=== PATIENT | male | born 1990 | race Caucasian/White ===

== ENCOUNTER 2016-06-13 13:44 | Emergency (ER) | payer OTHER ==
--- NOTE | 2016-06-13 13:57 | ER Document Report ---
ED Medical Screen (RME) - General Stated Complaint: VOMITING Notes: onset: friday emesis occasionally throughout the day but worse today denies hematemesis or hematochezia epigastric abdominal pain social etoh use last BM- today, loose I have greeted and performed a rapid initial assessment of this patient. A comprehensive ED assessment and evaluation of the patient, analysis of test results and completion of the medical decision making process will be conducted by additional ED providers. - Related Data Allergies/Adverse Reactions: No Known Allergies Allergy (Unverified 04/09/12 17:54) Past Medical History - Immunizations Hx Diphtheria, Pertussis, Tetanus Vaccination: Yes - unk Physical Exam - Vital signs Vitals: Temp Pulse Resp BP Pulse Ox 98.1 F 64 20 145/76 H 100 06/13/16 13:55 06/13/16 13:55 06/13/16 13:55 06/13/16 13:55 06/13/16 13:55 Course - Vital Signs Vital signs: Temp Pulse Resp BP Pulse Ox 98.1 F 64 20 145/76 H 100 06/13/16 13:55 06/13/16 13:55 06/13/16 13:55 06/13/16 13:55 06/13/16 13:55
[2016-06-13] MEDS ORDERED: ONDANSETRON 4 MG TAB.RAPDIS PO ONE (14:01)
[2016-06-13 14:21] LABS: ABSOLUTE LYMPHOCYTES (AUTO) 1.9 10^3/uL (0.5-4.7); ABSOLUTE MONOCYTES (AUTO) 1.1 10^3/uL (0.1-1.4); ABSOLUTE NEUT (AUTO) 7.1 10^3/uL (1.7-8.2); BASOPHILS % (AUTO) 0.4 % (0-2); EOSINOPHILS % (AUTO) 0.1 % (0-6); HEMOGLOBIN 14.8 g/dL (13.5-17.0); HGB HCT DIFFERENCE 2.4; MEAN CORPUSCULAR HEMOGLOBIN 28.9 pg (27.0-33.4); MEAN CORPUSCULAR HGB CONC 35.1 g/dL (32.0-36.0); MEAN CORPUSCULAR VOLUME 82 fl (80-97); MONOCYTES % (AUTO) 11.1 % (3-13); RED BLOOD COUNT 5.11 10^6/uL (4.35-5.55); RED CELL DISTRIBUTION WIDTH 12.9 % (11.5-14.0); SEGMENTED NEUTROPHILS % (AUTO) 69.4 % (42-78); WHITE BLOOD COUNT 10.2 10^3/uL (4.0-10.5)
[2016-06-13 14:35] LABS: ALANINE AMINOTRANSFERASE 32 U/L (21-72); ALKALINE PHOSPHATASE 65 U/L (38-126); ANION GAP 17 (5-19); ASPARTATE AMINO TRANSFERASE 19 U/L (17-59); BILIRUBIN,TOTAL 3.5 mg/dL (0.2-1.3); BLOOD UREA NITROGEN 11 mg/dL (7-20); CALCIUM 10.4 mg/dL (8.4-10.2); CARBON DIOXIDE 25 mmol/L (22-30); CHLORIDE 100 mmol/L (98-107); CREATININE RESULT 0.85 mg/dL (0.52-1.25); GLUCOSE 103 mg/dL (75-110); SODIUM 141.9 mmol/L (137-145); TOTAL PROTEIN 8.6 g/dL (6.3-8.2)
[2016-06-13] MEDS ORDERED: NORMAL SALINE 1000 ML 1,000 ML IV PRN (15:18)
[2016-06-13] MEDS ORDERED: ONDANSETRON HCL INJ/PF 4 MG/2 ML SDV IV ONE ×2 (15:19→17:19)
--- NOTE | 2016-06-13 17:05 | ER Document Report ---
ED GI/ - General Chief Complaint: Vomiting Stated Complaint: VOMITING Notes: Patient says he began vomiting on Friday. He's been maintained nauseated with vomiting for a couple of days, until yesterday, he seemed to be improving. After dinner last night, he says that he became nauseated and began vomiting again and is vomited all night and all day today. He says he has vomited about 20 times in the past 24 hours. Also having some watery diarrhea. No blood present in either the vomitus or the stools. He has abdominal pains primarily in the epigastric region of the abdomen. No urinary tract symptoms. Has felt like he had a fever, but hasn't taken his temperature. TRAVEL OUTSIDE OF THE [place] IN LAST 30 DAYS: No - Related Data Allergies/Adverse Reactions: acetaminophen [From Vicodin] Allergy (Verified 06/13/16 13:59) hydrocodone [From Vicodin] Allergy (Verified 06/13/16 13:59) Past Medical History - Social History Smoking Status: Current Every Day Smoker Chew tobacco use (# tins/day): No Frequency of alcohol use: Occasional Drug Abuse: None Family History: Reviewed & Not Pertinent Patient has suicidal ideation: No Patient has homicidal ideation: No GI Medical History: Denies: Hx Cirrhosis, Hx Hepatitis, Hx Liver Failure - Immunizations Hx Diphtheria, Pertussis, Tetanus Vaccination: Yes - unk Review of Systems - Review of Systems Notes: REVIEW OF SYSTEMS: CONSTITUTIONAL : Denies fever. EENT: Denies eye, ear, nose or mouth or throat pain or other symptoms. CARDIOVASCULAR: Denies chest pain. RESPIRATORY: Denies cough, chest congestion, or shortness of breath. GASTROINTESTINAL: See history of present illness. GENITOURINARY: Denies difficulty or painful urinating, urinary frequency, blood in urine. Urine is darker in color. MUSCULOSKELETAL: Denies back or neck pain. Denies joint pain or swelling. SKIN: Denies rash or skin lesions. NEUROLOGICAL: Denies LOC or altered mental status. Denies headache. Denies sensory loss or motor deficits. ALL OTHER SYSTEMS REVIEWED AND NEGATIVE. Physical Exam - Vital signs Vitals: Temp Pulse Resp BP Pulse Ox 98.1 F 64 20 145/76 H 100 06/13/16 13:55 06/13/16 13:55 06/13/16 13:55 06/13/16 13:55 06/13/16 13:55 Interpretation: Normal - Notes Notes: PHYSICAL EXAMINATION: GENERAL: Well-appearing, in no acute distress. Vital signs are all normal. HEAD: Atraumatic, normocephalic. ENT: oropharynx clear without exudates. Moist mucous membranes. NECK: Normal range of motion, supple. LUNGS: Breath sounds clear and equal bilaterally. HEART: Regular rate and rhythm without murmurs. ABDOMEN: Soft, mildly tender in the epigastrium, not much in the right upper quadrant. No guarding and no rebound present. No masses felt. BACK: No tenderness throughout entire back. EXTREMITIES: Normal range of motion without pain. NEUROLOGICAL: Normal speech, normal gait. Normal sensory, motor, and reflex exams. Awake, alert, and oriented x3. Cranial nerves normal. SKIN: Warm, dry, no rashes. Course - Re-evaluation Re-evalutation: 06/13/16 17:[address] Barreto, surgeon medical transcription editor who recommends a CT scan, as the ultrasound findings of the gallbladder are likely secondary to dehydration from excessive vomiting and poor oral intake the last few days. 06/13/16 20:56 Patient seems to be tolerating some by mouth fluids at this time. His CT scan was essentially normal. He said 3 L of IV fluids since he's been here. Says his nausea is still present but much better. Wishes to try to go home and see if he can tolerate fluids at home and not be admitted to the hospital for intractable vomiting. I think that's a reasonable course of action for him. 06/13/16 21:00 When questioned, patient acknowledges that he occasionally smokes marijuana and did so recently. I advised him that there are some people who have this problem with marijuana smoking and he may want to keep it in the back of his mind that it might be the cause of his vomiting. - Vital Signs Vital signs: Temp Pulse Resp BP Pulse Ox 98.1 F 64 14 145/76 H 100 06/13/16 13:55 06/13/16 13:55 06/13/16 14:30 06/13/16 13:55 06/13/16 13:55 - Laboratory Result Diagrams: 06/13/16 14:10 06/13/16 14:10 Laboratory results interpreted by me: 02/09/17 02/09/17 14:10 17:05 Calcium 10.4 H Total Bilirubin 3.5 H Total Protein 8.6 H Urine Protein 100 H Urine Ketones 80 H - Diagnostic Test Radiology reviewed: Image reviewed, Reports reviewed - Ultrasound of the right upper quadrant shows the gallbladder to be distended with sludge, but no thickening of the gallbladder wall. CT scan of the abdomen and pelvis with IV contrast (patient couldn't tolerate oral contrast) was normal without any acute findings. Discharge - Discharge Clinical Impression: Dehydration Intractable vomiting Qualifiers: Vomiting type: unspecified Nausea presence: with nausea Qualified Code(s): R11.2 - Nausea with vomiting, unspecified Condition: Stable Disposition: HOME, SELF-CARE Additional Instructions: VOMITING: Vomiting (or nausea without vomiting) can be caused by many other different problems. It can mean that something's wrong with the stomach, such as ulcers or inflammation or the intestinal tract, such as appendicitis. But it can also be a symptom of a problem that has nothing to do with the stomach or intestines. Vomiting is common with severe headaches, earaches, tonsillitis, and kidney infections, etc. We see it with pneumonia or heart attacks. Drugs can cause nausea and vomiting. Many abdominal problems cause vomiting; for example, gallstones, kidney stones, pancreatitis, and intestinal obstruction ( blocked bowels). In most cases, curing the vomiting depends on fixing the problem that caused it. For temporary relief, we may use an anti-nausea medicine. For home use, we can prescribe suppositories, chewable pills, pills that dissolve in the mouth, or liquid anti-nausea drugs. If the vomiting seems to be caused by a problem in the stomach, acid-suppressing drugs may be prescribed as well. It's important to avoid dehydration. Sip small amounts of clear liquids ( soft drinks, tea, broth, etc) . Try to take fluids frequently even if you are vomiting to prevent dehydration. Take increasing amounts of fluid and when liquids are being consumed successfully, advance to small amounts of bland food (toast, soups, mashed potatoes, etc.) until you are able to resume a regular diet. Avoid aspirin, tobacco, and alcohol. If the vomiting worsens, if the problem that's making you vomit worsens, or if there's evidence of bleeding in the stomach (such as black, tarry stool, or bloody or black vomit), you should return immediately. Also, return if abdominal pain worsens or becomes localized to one area or you develop high fever. Call your doctor if you aren't improved in 24 hours. VIRAL SYNDROME: The physician has diagnosed a viral infection. Viruses not only cause "colds," but can cause many different symptoms including generalized aching, fever, headache, cough, diarrhea, nausea, vomiting, and fatigue. The treatment, for the most part, is simply relief of symptoms. This means that antibiotics are usually not given. Rest, fluids, pain medications and, occasionally, medication for the specific symptoms that are most bothersome will be prescribed. Use good handwashing to avoid passing the virus to others. Shared toys should be cleaned with disinfectant. Clean the toilets, sinks, and counter surfaces in bathrooms. Launder clothing in hot water. Contact the physician if you develop any new or unusual symptoms such as severe headache, stiff neck, high fever, chest pain, productive cough, or shortness of breath. You should be rechecked if you don't see marked improvement within seven to 10 days. Dehydration Dehydration can result from vomiting or diarrhea, fever, or decreased intake of fluids. If severe, hospitalization and intravenous fluids may be required. Most cases are treated at home with fluids by mouth. For the next 24 hours, drink lots of clear fluids. In mild cases, this can be soda pop or sports drinks. For more severe dehydration, the doctor may recommend special fluids such as Pedialyte or Lytren. Try to get three liters ( 3 quarts) of fluid per day. If vomiting occurs, continue to drink the fluids frequently (every 15 to 20 minutes), but in small amounts (one or two ounces). Depending on the type of dehydration, the doctor may prescribe antinausea medicine or potassium replacements. Call the doctor or return for re-examination if you become progressively weak, vomit repeatedly, or have other new symptoms. INTRAVENOUS (I V) FLUIDS: As part of your care today, you received intravenous (IV) fluids. IV fluids are administered to patients who are dehydrated or to those who have certain chemical (electrolyte) abnormalities that need correcting. ANTINAUSEA MEDICATION: You have been given a medication to suppress nausea and vomiting. This type of medication can be given as a shot, pill, or suppository. It will usually last for many hours. Pills and shots usually last six to eight hours. For the typical illness, only one or two doses of the medication may be necessary. Mild lightheadedness may occur. This type of medicine can cause drowsiness. Do not drive or operate dangerous machinery while under its influence. Do not mix with alcohol. See your doctor at once if you have muscle spasms or tightness, or uncontrollable motions (particularly of the neck, mouth, or jaw). Persistent vomiting or severe lightheadedness should also be evaluated by the physician. FOLLOW-UP CARE: If you have been referred to a physician for follow-up care, call the physician s office for an appointment as you were instructed or within the next two days. If you experience worsening or a significant change in your symptoms, notify the physician immediately or return to the Emergency Department at any time for re-evaluation. If you have recurrent persistent frequent vomiting, return to the emergency department for reassessment and possible admission for intractable vomiting Forms: Return to Work
[2016-06-13] MEDS ORDERED: METOCLOPRAMIDE HCL INJ/PF 10 MG/2 ML SDV IV ONE (17:19)
[2016-06-13 17:33] LABS: APPEARANCE,URINE SLIGHTLY-CLOUDY; BILIRUBIN,URINE NEGATIVE (NEGATIVE); GLUCOSE, URINE NEGATIVE (NEGATIVE); KETONES,URINE 80 mg/dL (NEGATIVE); LEUKOCYTE ESTERASE,URINE NEGATIVE (NEGATIVE); NITRITE,URINE NEGATIVE (NEGATIVE); PROTEIN,URINE 100 mg/dL (NEGATIVE); URINE SPECIFIC GRAVITY 1.031; UROBILINOGEN,URINE NEGATIVE mg/dL (<2.0)
[2016-06-13] MEDS ORDERED: 1/2 NORMAL SALINE 1,000 ML IV ONE (18:33)
[2016-06-13] MEDS ORDERED: PROCHLORPERAZINE EDISYLATE INJ 10 MG/2 ML VIAL IV ONE (18:40)
[2016-06-13] MEDS ORDERED: ONDANSETRON ODT 4 MG TAB (6 TAB/DSPK) PO PRN (21:01)
[2016-06-13 21:24] VITALS: BP 134/87
== END 2016-06-13 21:20 | disposition home or self-care (01) ==
LOC: ER 13:44
DX: E86.0 Dehydration (principal); R11.2 Nausea with vomiting, unspecified; F17.210 Nicotine dependence, cigarettes, uncomplicated; R10.13 Epigastric pain
CPT/HCPCS: 96376; 99284; 96361; 96374; 96375; 36415; 83690; 85025; 80053; 81001; 76705; 74177; S0119; J2765; J0780; J2405; J7030

== ENCOUNTER 2016-06-14 18:17 | Observation (INO) | payer OTHER ==
[2016-06-14] MEDS ORDERED: ONDANSETRON 4 MG TAB.RAPDIS PO ONE (18:49)
--- NOTE | 2016-06-14 18:49 | ER Document Report ---
ED Medical Screen (RME) - General Stated Complaint: VOMITING Notes: Patient is a 25-year-old male presents emergency Department with intractable vomiting. Patient was seen here last evening for same symptoms. Patient states that he went home and was not able to keep anything down was told to return to the emergency department if the symptoms persist. I have greeted and performed a rapid initial assessment of this patient. A comprehensive ED assessment and evaluation of the patient, analysis of test results and completion of the medical decision making process will be conducted by additional ED providers. TRAVEL OUTSIDE OF THE [place] IN LAST 30 DAYS: No - Related Data Allergies/Adverse Reactions: acetaminophen [From Vicodin] Allergy (Verified 06/14/16 18:46) hydrocodone [From Vicodin] Allergy (Verified 06/14/16 18:46) Past Medical History Renal/ Medical History: Denies: Hx Peritoneal Dialysis GI Medical History: Denies: Hx Cirrhosis, Hx Hepatitis, Hx Liver Failure Infectious Medical History: Denies: Hx Hepatitis - Immunizations Hx Diphtheria, Pertussis, Tetanus Vaccination: Yes - unk Physical Exam - Vital signs Vitals: Temp Pulse Resp BP Pulse Ox 98.6 F 58 L 22 H 146/71 H 100 06/14/16 18:44 06/14/16 18:44 06/14/16 18:44 06/14/16 18:44 06/14/16 18:44 Course - Vital Signs Vital signs: Temp Pulse Resp BP Pulse Ox 98.6 F 58 L 22 H 146/71 H 100 06/14/16 18:44 06/14/16 18:44 06/14/16 18:44 06/14/16 18:44 06/14/16 18:44
[2016-06-14 19:21] LABS: ABSOLUTE BASOPHILS # (AUTO) 0.1 10^3/uL (0.0-0.2); ABSOLUTE MONOCYTES (AUTO) 1.3 10^3/uL (0.1-1.4); ABSOLUTE NEUT (AUTO) 6.9 10^3/uL (1.7-8.2); BASOPHILS % (AUTO) 0.6 % (0-2); HEMATOCRIT 40.4 % (37.9-51.0); HGB HCT DIFFERENCE 1.6; LYMPHOCYTES % (AUTO) 19.7 % (13-45); MEAN CORPUSCULAR HEMOGLOBIN 28.4 pg (27.0-33.4); MEAN CORPUSCULAR HGB CONC 34.5 g/dL (32.0-36.0); MEAN CORPUSCULAR VOLUME 82 fl (80-97); MONOCYTES % (AUTO) 12.2 % (3-13); RED BLOOD COUNT 4.92 10^6/uL (4.35-5.55); RED CELL DISTRIBUTION WIDTH 12.7 % (11.5-14.0); SEGMENTED NEUTROPHILS % (AUTO) 67.5 % (42-78); WHITE BLOOD COUNT 10.3 10^3/uL (4.0-10.5)
[2016-06-14 19:32] LABS: ALANINE AMINOTRANSFERASE 30 U/L (21-72); ALBUMIN 4.7 g/dL (3.5-5.0); ALKALINE PHOSPHATASE 63 U/L (38-126); ANION GAP 19 (5-19); ASPARTATE AMINO TRANSFERASE 19 U/L (17-59); BILIRUBIN,TOTAL 3.7 mg/dL (0.2-1.3); BLOOD UREA NITROGEN 11 mg/dL (7-20); CALCIUM 10.2 mg/dL (8.4-10.2); CARBON DIOXIDE 21 mmol/L (22-30); CHLORIDE 99 mmol/L (98-107); GLUCOSE 88 mg/dL (75-110); LIPASE 68.4 U/L (23-300); POTASSIUM 3.7 mmol/L (3.6-5.0); SODIUM 139.1 mmol/L (137-145); TOTAL PROTEIN 7.9 g/dL (6.3-8.2)
[2016-06-14] MEDS ORDERED: PROMETHAZINE HCL INJ 25 MG/1 ML VIAL IM ONE (22:31)
[2016-06-14] MEDS ORDERED: PROMETHAZINE HCL INJ 25 MG/1 ML VIAL ONE (22:50)
--- NOTE | 2016-06-14 22:56 | ER Document Report ---
ED General - General Chief Complaint: Vomiting Stated Complaint: VOMITING Notes: Patient is a 25-year-old male presents with complaints of nausea vomiting. He seen yesterday and had a CT scan obtained which was negative. Was given Zofran and discharged home. Today he vomited despite Zofran and therefore came back. He complains of some left upper quadrant abdominal pain that is intermittent and crampy. Pain is worse when he goes to vomit or have diarrhea. No blood in the stool. No blood in his emesis. No other complaints at this time. No fevers. TRAVEL OUTSIDE OF THE [place] IN LAST 30 DAYS: No - Related Data Allergies/Adverse Reactions: acetaminophen [From Vicodin] Allergy (Verified 06/14/16 18:46) hydrocodone [From Vicodin] Allergy (Verified 06/14/16 18:46) Past Medical History - Social History Smoking Status: Current Every Day Smoker Chew tobacco use (# tins/day): No Frequency of alcohol use: Occasional Drug Abuse: Marijuana Family History: Reviewed & Not Pertinent Patient has suicidal ideation: No Patient has homicidal ideation: No Renal/ Medical History: Denies: Hx Peritoneal Dialysis GI Medical History: Denies: Hx Cirrhosis, Hx Hepatitis, Hx Liver Failure Infectious Medical History: Denies: Hx Hepatitis - Immunizations Hx Diphtheria, Pertussis, Tetanus Vaccination: Yes - unk Review of Systems - Review of Systems Notes: My Normal Review Basic REVIEW OF SYSTEMS: CONSTITUTIONAL : Denies fever, chills, or sweats. Denies recent illness. EENT: Denies eye, ear, throat, or mouth pain or symptoms. Denies nasal or sinus congestion. RESPIRATORY: Denies cough, cold, or chest congestion. Denies shortness of breath, difficulty breathing, or wheezing. GASTROINTESTINAL: Left upper quadrant abdominal pain. Some vomiting and diarrhea. Denies constipation. MUSCULOSKELETAL: Denies neck or back pain or joint pain or swelling. SKIN: Denies rash or skin lesions. NEUROLOGICAL: Denies altered mental status or loss of consciousness. Denies headache. Denies weakness or paralysis or loss of use of either side. Denies problems with gait or speech. Denies sensory or motor loss. ALL OTHER SYSTEMS REVIEWED AND NEGATIVE. Physical Exam - Vital signs Vitals: Temp Pulse Resp BP Pulse Ox 98.6 F 58 L 22 H 146/71 H 100 06/14/16 18:44 06/14/16 18:44 06/14/16 18:44 06/14/16 18:44 06/14/16 18:44 - Notes Notes: General Appearance: Well nourished, alert, cooperative, no acute distress, no obvious discomfort. Well-appearing. Vitals: reviewed, See vital signs table. Head: no swelling or tenderness to the head Eyes: PERRL, EOMI, Conjuctiva clear Mouth: No decreasd moisture Throat: No tonsillar inflammation, No airway obstruction, No lymphadenopathy Neck: Supple, no neck tenderness, No thyromegaly Lungs: No wheezing, No rales, No rhonci, No accessory muscle use, good air exchange bilaterally. Heart: Normal rate, Regular rythm, No murmur, no rub Abdomen: Normal BS, soft, No rigidity, mild left upper quadrant abdominal tenderness to palpation, No guarding, no rebound, no abdominal masses, no organomegaly Extremities: strength 5/5 in all extremities, good pulses in all extremities, no swelling or tenderness in the extremities, no edema. Skin: warm, dry, appropriate color, no rash Neuro: speech clear, oriented x 3, normal affect, responds appropriately to questions. Course - Vital Signs Vital signs: Temp Pulse Resp BP Pulse Ox 98.1 F 63 16 126/69 H 96 06/14/16 22:49 06/14/16 22:49 06/14/16 22:49 06/14/16 22:49 06/14/16 22:50 - Laboratory Result Diagrams: 06/14/16 19:00 06/14/16 19:00 Laboratory results interpreted by me: 06/14/16 19:00 Carbon Dioxide 21 L Total Bilirubin 3.7 H - Transfer of Care Notes: 06/15/16 00:57 Patient continued to vomit despite Zofran, Phenergan, and Reglan. Patient already had CT scan and ultrasound performed yesterday. His blood work today is otherwise negative. Due to his intractable vomiting despite all those medications refilled appropriate to admit him for further workup. He did have 80 ketones in his urine yesterday when he was seen and needs continued to vomit since going home and therefore I suspect he is probably still dehydrated. Dictation of this chart was performed using voice recognition software; therefore, there may be some unintended grammatical errors. Discharge - Discharge Clinical Impression: Dehydration Intractable vomiting Qualifiers: Vomiting type: unspecified Nausea presence: with nausea Qualified Code(s): R11.2 - Nausea with vomiting, unspecified Condition: Stable Disposition: ADMITTED OBSERVATION Unit Admitted: Telemetry
[2016-06-14] MEDS ORDERED: NORMAL SALINE 1000 ML 1,000 ML IV ONE (23:03)
[2016-06-15] MEDS ORDERED: METOCLOPRAMIDE HCL INJ/PF 10 MG/2 ML SDV IV ONE (00:46)
[2016-06-15] MEDS ORDERED: NORMAL SALINE 1000 ML 1,000 ML IV ONE (00:54)
[2016-06-15 01:19] LABS: AMORPHOUS SEDIMENT,URINE TRACE /HPF; APPEARANCE,URINE CLEAR; BILIRUBIN,URINE NEGATIVE (NEGATIVE); GLUCOSE, URINE NEGATIVE (NEGATIVE); KETONES,URINE 80 mg/dL (NEGATIVE); LEUKOCYTE ESTERASE,URINE NEGATIVE (NEGATIVE); NITRITE,URINE NEGATIVE (NEGATIVE); PROTEIN,URINE 30 mg/dL (NEGATIVE); URINE SPECIFIC GRAVITY 1.025
[2016-06-15 01:46] LABS: URINE BARBITURATES SCREEN NEGATIVE; URINE METHADONE SCREEN NEGATIVE; URINE OPIATES LOW NEGATIVE; URINE PHENCYCLIDINE SCREEN NEGATIVE
[2016-06-15] MEDS ORDERED: RINGERS SOLUTION,LACTATED 2,000 ML IV ONE (02:03)
[2016-06-15 02:04] LABS: ANION GAP 13 (5-19); BLOOD UREA NITROGEN 11 mg/dL (7-20); CALCIUM 8.7 mg/dL (8.4-10.2); CARBON DIOXIDE 24 mmol/L (22-30); CHLORIDE 103 mmol/L (98-107); CREATININE RESULT 0.76 mg/dL (0.52-1.25); GLUCOSE 87 mg/dL (75-110); POTASSIUM 3.7 mmol/L (3.6-5.0); SODIUM 139.7 mmol/L (137-145)
[2016-06-15] MEDS ORDERED: PROMETHAZINE HCL INJ 25 MG/1 ML VIAL IV PRN (02:04)
[2016-06-15] MEDS ORDERED: NICOTINE 21 MG/24 HR PATCH.TD24 TD PRN (02:05)
[2016-06-15] MEDS ORDERED: FAMOTIDINE INJ/PF 20 MG/2 ML SDV IV ONE (02:15)
[2016-06-15] MEDS ORDERED: ACETAMINOPHEN 325 MG TABLET PO PRN (02:48)
--- NOTE | 2016-06-15 03:45 | PDOC H&P ---
History of Present Illness Admission Date/PCP: 06/15/16 01:09 [facility]; has yet to be seen for the first time there. Patient complains of: Nausea vomiting and diarrhea History of Present Illness: FERNANDO PETER is a 25 year old male basically with an unremarkable past medical history who presents to the emergency room for the second time in the last 36-48 hours for 3-4 day history of nausea vomiting and diarrhea. Was initially seen on the with workup including abdominal ultrasound and CT scan of the abdomen and pelvis with results not overly remarkable. Emergency room physician discussed the patient with on-call surgeon. At patient's request, was discharged home. Emergency room notes reviewed. However, symptoms have persisted. Mostly the nausea and vomiting. No hematemesis or coffee ground emesis. No hematochezia or or melena. No fever or chills. No prior such episodes. Has had some cramping abdominal pain, which seems to worsen just prior to the vomiting or diarrhea. No unusual oral intake. No friends or family with similar complaints. No recent antibiotic use. Patient has been discussed with emergency room physician who evaluated the patient. . Laboratory results are listed in [facility] and are reviewed. X-ray summary results are listed below, with full report(s) reviewed. . Social history/personal habits: Single. No children. Works in customer service over the telephone. Almost a pack of cigarettes per day. Fifth of rum every month. Occasional marijuana use. Allergies/adverse reactions are listed in [facility] and are reviewed. Home medications none REVIEW OF SYSTEMS: Constitutional: No fever or chills. Eyes: Wears glasses. ENT: No swallowing problems or complaints. No hearing problems or complaints. Pulmonary: No current complaints. Cardiovascular: No current complaints, including chest pain. Gastrointestinal: See history and present illness. Skin: No current complaints, including rashes. Hematologic: No unusual easy bruising or bleeding. Neurologic: No current complaints, including numbness or tingling. Musculoskeletal: No current complaints, including painful joints. Psychiatric: No current complaints, including anxiety or depression. Endocrine: No current complaints, including polyuria. Genitourinary: No current complaints, including dysuria. PHYSICAL EXAMINATION: Temperature 98.1. 5 feet 9 inches tall. 64 kg. BMI 20.8 kg/m. Pulse 89 and regular. 100% saturation on room air. Respirations are 23 and unlabored. Blood pressure 131/79. Thin otherwise well-developed young male who appears not to feel very well. Otherwise, pleasant awake alert and cooperative. No other obvious distress other than perhaps mildly anxious. No agitation. Skin is warm and dry. No grossly obvious evidence of rash in areas of skin examined. No subcutaneous nodules palpated. Tattoos. ENT: Hearing grossly normal to normal conversation. Tongue midline on protrusion pink and slightly tacky. Lower lip pierced. Eyes: No scleral icterus. Pupils equal and reactive to light at 4 mm. [place] conjunctivae. Neck is supple and nontender to gentle active range of motion and palpation. Midline trachea. No palpable thyroid nodule mass enlargement or tenderness. Lymphatic: No palpable cervical or clavicular nodes. Neck and lymphatic exams limited by patient body habitus. Psychiatric: Reasonable insight into acute and chronic medical issues. Oriented to time location and why here. Lungs: Auscultation reveals clear and equal breath sounds bilaterally. No use of accessory respiratory muscles. Cardiovascular: Heart regular rate and rhythm, without gallop murmur or rub. No carotid or abdominal aortic bruits. No ankle or pedal edema. palpable dorsalis pedis pulses. Abdomen: soft, , slightly distended with positive bowel sounds. Unable to adequately evaluate abdomen for masses or organomegaly due to distention. Very mild diffuse abdominal pain, perhaps a bit more noticeable in the epigastrium. Certainly no evidence of guarding or peritoneal signs. Extremities: Feet are warm and dry. No calf tenderness to compression. No grossly obvious visual evidence of calf swelling. Gentle manipulation of lower extremities fails to reveal any obvious evidence of injury or instability to knees hips or ankles. Neurologic: Moves upper extremities grossly normally. Patellar reflexes absent. Absent Babinski. Light touch is intact at feet. Dorsiflexion and plantarflexion of feet 5 / 5 and symmetric. Past Medical History Cardiac Medical History: Denies: Congestive Heart Failure, Coronary Artery Disease, DVT, Myocardial Infarction, Hyperlipidema, Hypertension, Pulmonary Embolism Pulmonary Medical History: Denies: Asthma, Chronic Obstructive Pulmonary Disease (COPD) EENT Medical History: Reports: Eyes - Glasses Denies: Ears, Throat Neurological Medical History: Denies: Hemorrhagic CVA, Ischemic CVA, Seizures Endocrine Medical History: Denies: Diabetes Mellitus Type 1, Diabetes Mellitus Type 2, Hyperthyroidism, Hypothyroidism Renal/ Medical History: Reports: None GI Medical History: Denies: Cirrhosis, Gastroesophageal Reflux Disease, Hepatitis, Peptic Ulcer Disease Musculoskeltal Medical History: Denies: Arthritis Skin Medical History: Reports: None Denies: Eczema, Psoriasis Psychiatric Medical History: Reports: Substance Abuse - Marijuana, Tobacco Dependency Denies: Alcohol Dependency - A fifth of rum every month., Depression, General Anxiety Disorder Hematology: Denies: Other Infectious Medical History: Denies: Hepatitis B, Hepatitis C Past Surgical History Past Surgical History: Reports: Other - [place] teeth extraction Social History Information Source: Patient, Emergency Med Personnel, [facility] Records Smoking Status: Current Every Day Smoker Frequency of Alcohol Use: Social Drugs: Marijuana - Advance Directive Resuscitation Status: Full Code Surrogate healthcare decision maker:: Parents Family History Family History: Reviewed & Not Pertinent Parental Family History Reviewed: Yes Children Family History Reviewed: NA Sibling(s) Family History Reviewed.: Yes Medication/Allergy Home Medications: No Home Medications 06/15/16 Allergies/Adverse Reactions: hydrocodone [From Vicodin] Allergy (Verified 06/14/16 18:46) Physical Exam Vital Signs: Temp Pulse Resp BP Pulse Ox 98.3 F 63 20 131/79 H 99 06/15/16 01:35 06/14/16 22:49 06/15/16 01:36 06/15/16 01:36 06/15/16 01:36 Results Laboratory Results: 06/15/16 01:43 06/15/16 01:43 Sodium 139.7 Potassium 3.7 Chloride 103 Carbon Dioxide 24 Anion Gap 13 BUN 11 Creatinine 0.76 Est GFR ( Amer) > 60 Est GFR (Non-Af Amer) > 60 Glucose 87 Calcium 8.7 Magnesium 2.0 Assessment & Plan - Diagnosis (1) Dehydration Is this a current diagnosis for this admission?: Yes (2) Diarrhea Qualifiers: Diarrhea type: unspecified type Qualified Code(s): R19.7 - Diarrhea , unspecified Is this a current diagnosis for this admission?: Yes (3) Intractable vomiting Qualifiers: Vomiting type: unspecified Nausea presence: with nausea Qualified Code(s): R11.2 - Nausea with vomiting, unspecified Is this a current diagnosis for this admission?: YesPlan: Likely viral in origin. Ice chips only at present time. IV Pepcid. IV fluids. Strict intake and output. When necessary Phenergan. I have strongly encouraged patient to be careful getting out of bed , to avoid a fall with injury. Knee high SCDs for DVT prophylaxis, along with subcutaneous Lovenox . Impression and plans were discussed with patient, who concurs. Time spent in evaluation and management of patient: 53 minutes. (4) Marijuana use Is this a current diagnosis for this admission?: Yes (5) Tobacco dependency Is this a current diagnosis for this admission?: YesPlan: When necessary nicotine patch.
[2016-06-15] MEDS ORDERED: INFLUENZA ADLT QUAD (36MOS+) 2016-17 VAC 0.5 ML SYR IM PRN (04:38)
[2016-06-15] MEDS: POTASSI CL 20 MEQ/D5NS 1L 1,000 ML IV PRN ×3 (05:08→12:48)
[2016-06-15] MEDS ORDERED: ENOXAPARIN SODIUM INJ 40 MG/0.4 ML DISP.SYRIN SUBCUT SCH (08:00)
[2016-06-15] MEDS ORDERED: FAMOTIDINE INJ/PF 20 MG/2 ML SDV IV SCH (10:00)
[2016-06-15] MEDS ORDERED: ONDANSETRON 4 MG TAB.RAPDIS PO PRN (10:48)
[2016-06-15] MEDS ORDERED: ONDANSETRON HCL INJ/PF 4 MG/2 ML SDV IV PRN (10:48)
[2016-06-15 15:57] VITALS: BP 130/70
--- NOTE | 2016-06-15 17:08 | PDOC DISCHARGE SUMMARY ---
General - Admit/Disc Date/PCP Admission Date/Primary Care Provider: 06/15/16 02:48 [facility] Discharge Date: 06/15/16 - Discharge Diagnosis (1) Gastroenteritis Is this a current diagnosis for this admission?: Yes (2) Marijuana use Is this a current diagnosis for this admission?: Yes (3) Tobacco dependency Is this a current diagnosis for this admission?: Yes - Additional Information Resuscitation Status: Full Code Discharge Diet: As Tolerated, Regular Discharge Activity: Activity As Tolerated Home Medications: Famotidine [Pepcid 20 mg Tablet] 20 mg PO BID #12 tablet 06/15/16 Ondansetron [Zofran Odt 4 mg Tablet] 4 mg PO Q4HP PRN #10 tab.rapdis 06/15/16 History of Present Illness Patient complains of: Nausea, vomiting, and diarrhea History of Present Illness: FERNANDO PETER is a 25 year old male basically with an unremarkable past medical history who presents to the emergency room for the second time in the last 36-48 hours for 3-4 day history of nausea vomiting and diarrhea. Was initially seen on the with workup including abdominal ultrasound and CT scan of the abdomen and pelvis with results not overly remarkable. At patient's request, was not discharged home. However, symptoms have persisted. Mostly the nausea and vomiting. No hematemesis or coffee ground emesis. No hematochezia or or melena. No fever or chills. No prior such episodes. Has had some cramping abdominal pain, which seems to worsen just prior to the vomiting or diarrhea. No unusual oral intake. No friends or family with similar complaints. No recent antibiotic use. Hospital Course Hospital Course: The patient was admitted to a continuous telemetry unit. The patient maintained NPO status and aggressively hydrated. The patient's symptoms improved and clear liquid diet advanced without increase in symptoms. The patient's symptoms of abdominal pain, nausea, or vomiting were managed with appropriate analgesia and/or antiemetic. The patient continues to maintain his own hydration. The patient's imaging findings are consistent with other findings of hepatic interest. This can be further evaluated in outpatient basis. 06/14/16 06/15/16 19:00 01:43 Sodium 139.1 139.7 Potassium 3.7 3.7 Carbon Dioxide 24 Creatinine 0.80 0.76 Glucose 88 87 Calcium 10.2 8.7 Magnesium 2.0 Lipase 68.4 Physical Exam Vital Signs: Temp Pulse Resp BP Pulse Ox 98.6 F 63 18 130/70 H 99 06/15/16 15:55 06/15/16 15:55 06/15/16 15:55 06/15/16 15:55 06/15/16 15:55 Intake & Output 06/13/16 06/14/16 06/15/16 23:59 23:59 23:59 Intake Total 2602 Balance 2602 General appearance: PRESENT: no acute distress, cooperative, well-developed, well-nourished Head exam: PRESENT: atraumatic, normocephalic Eye exam: PRESENT: conjunctiva pink, EOMI, PERRLA. ABSENT: scleral icterus Ear exam: PRESENT: normal external ear exam Mouth exam: PRESENT: moist, tongue midline. ABSENT: dry mucosa Respiratory exam: PRESENT: accessory muscle use, symmetrical, unlabored. ABSENT : tachypnea Cardiovascular exam: PRESENT: RRR. ABSENT: bradycardia, tachycardia Vascular exam: ABSENT: pallor GI/Abdominal exam: PRESENT: ascites. ABSENT: guarding Rectal exam: PRESENT: deferred Extremities exam: PRESENT: full ROM. ABSENT: calf tenderness, clubbing, pedal edema Neurological exam: PRESENT: alert, awake, oriented to person, oriented to place , oriented to time, oriented to situation, CN II-XII grossly intact. ABSENT: motor sensory deficit Psychiatric exam: PRESENT: appropriate affect, normal mood. ABSENT: homicidal ideation, suicidal ideation Results Laboratory Results: Labs- Last Values WBC 10.3 10^3/uL (4.0-10.5) 06/14/16 19:00 RBC 4.92 10^6/uL (4.35-5.55) 06/14/16 19:00 Hgb 14.0 g/dL (13.5-17.0) 06/14/16 19:00 Hct 40.4 % (37.9-51.0) 06/14/16 19:00 MCV 82 fl (80-97) 06/14/16 19:00 MCH 28.4 pg (27.0-33.4) 06/14/16 19:00 MCHC 34.5 g/dL (32.0-36.0) 06/14/16 19:00 RDW 12.7 % (11.5-14.0) 06/14/16 19:00 Plt Count 269 10^3/uL (150-450) 06/14/16 19:00 Seg Neutrophils % 67.5 % (42-78) 06/14/16 19:00 Lymphocytes % 19.7 % (13-45) 06/14/16 19:00 Monocytes % 12.2 % (3-13) 06/14/16 19:00 Eosinophils % 0.0 % (0-6) 06/14/16 19:00 Basophils % 0.6 % (0-2) 06/14/16 19:00 Absolute Neutrophils 6.9 10^3/uL (1.7-8.2) 06/14/16 19:00 Absolute Lymphocytes 2.0 10^3/uL (0.5-4.7) 06/14/16 19:00 Absolute Monocytes 1.3 10^3/uL (0.1-1.4) 06/14/16 19:00 Absolute Eosinophils 0.0 10^3/uL (0.0-0.6) 06/14/16 19:00 Absolute Basophils 0.1 10^3/uL (0.0-0.2) 06/14/16 19:00 Sodium 139.7 mmol/L (137-145) 06/15/16 01:43 Potassium 3.7 mmol/L (3.6-5.0) 06/15/16 01:43 Chloride 103 mmol/L (98-107) 06/15/16 01:43 Carbon Dioxide 24 mmol/L (22-30) 06/15/16 01:43 Anion Gap 13 (5-19) 06/15/16 01:43 BUN 11 mg/dL (7-20) 06/15/16 01:43 Creatinine 0.76 mg/dL (0.52-1.25) 06/15/16 01:43 Est GFR ( Amer) > 60 (>60) 06/15/16 01:43 Est GFR (Non-Af Amer) > 60 (>60) 06/15/16 01:43 Glucose 87 mg/dL (75-110) 06/15/16 01:43 Calcium 8.7 mg/dL (8.4-10.2) 06/15/16 01:43 Magnesium 2.0 mg/dL (1.6-2.3) 06/15/16 01:43 Total Bilirubin 3.1 mg/dL (0.2-1.3) H 06/15/16 13:25 Direct Bilirubin 0.0 mg/dL (0.0-0.3) 06/14/16 19:00 AST 19 U/L (17-59) 06/14/16 19:00 ALT 30 U/L (21-72) 06/14/16 19:00 Alkaline Phosphatase 63 U/L (38-126) 06/14/16 19:00 Total Protein 7.9 g/dL (6.3-8.2) 06/14/16 19:00 Albumin 4.7 g/dL (3.5-5.0) 06/14/16 19:00 Lipase 68.4 U/L (23-300) 06/14/16 19:00 Urine Color YELLOW 06/15/16 00:55 Urine Appearance CLEAR 06/15/16 00:55 Urine pH 6.0 (5.0-9.0) 06/15/16 00:55 Ur Specific [place] 1.025 06/15/16 00:55 Urine Protein 30 mg/dL (NEGATIVE) H 06/15/16 00:55 Urine Glucose (UA) NEGATIVE mg/dL (NEGATIVE) 06/15/16 00:55 Urine Ketones 80 mg/dL (NEGATIVE) H 06/15/16 00:55 Urine Blood NEGATIVE (NEGATIVE) 06/15/16 00:55 Urine Nitrite NEGATIVE (NEGATIVE) 06/15/16 00:55 Urine Bilirubin NEGATIVE (NEGATIVE) 06/15/16 00:55 Urine Urobilinogen 2.0 mg/dL (<2.0) H 06/15/16 00:55 Ur Leukocyte Esterase NEGATIVE (NEGATIVE) 06/15/16 00:55 Urine WBC (Auto) 1 /HPF 06/15/16 00:55 Amorphous Sediment Auto TRACE /HPF 06/15/16 00:55 Urine Mucus (Auto) FEW /LPF 06/15/16 00:55 Urine Ascorbic Acid NEGATIVE (NEGATIVE) 06/15/16 00:55 Urine Opiates Screen NEGATIVE 06/15/16 00:55 Urine Methadone Screen NEGATIVE 06/15/16 00:55 Ur Barbiturates Screen NEGATIVE 06/15/16 00:55 Ur Phencyclidine Scrn NEGATIVE 06/15/16 00:55 Ur Amphetamines Screen NEGATIVE 06/15/16 00:55 U Benzodiazepines Scrn NEGATIVE 06/15/16 00:55 Urine Cocaine Screen NEGATIVE 06/15/16 00:55 U Marijuana (THC) Screen UNCONFIRMED POSITIVE 06/15/16 00:55 10/16/11 06/13/16 06/14/16 15:45 14:10 19:00 Total Bilirubin 1.9 H 3.5 H 3.7 H 06/15/16 13:25 Total Bilirubin 3.1 H Qualifiers PATEINT BEING DISCHARGED WITH ANY OF THE FOLLOWING DIAGNOSIS?: No Plan Discharge Plan: The patient is a follow with primary care provider within one week for hospital follow-up. Patient will need outpatient hepatic evaluation. Time Spent: Greater than 30 Minutes - on this visit including assessment, plan, physical examination, extensive review of previous records , and patient education is 60 minutes.
== END 2016-06-15 17:03 | disposition home or self-care (01) ==
LOC: ER 18:17 → UNDOADMOB 06-15 01:09 → EH 06-15 01:09 → 4N 06-15 02:17 → EH 06-15 02:17 → 4N 06-15 02:48
PROVIDERS: ADMIT Family Medicine; ATTEND Family Medicine
DX: K52.9 Noninfective gastroenteritis and colitis, unspecified (principal); F17.200 Nicotine dependence, unspecified, uncomplicated; Z23 Encounter for immunization
CPT/HCPCS: 99284; 96372; 96361; 96374; 36415 ×2; 82247; 83690; 83735; 85025; 80048; 80053; 81001; 80307; 90686; G0378; S0119; J3480; J2765; J1650; J2550 ×2; J7030 ×2; J7120; S0028

== ENCOUNTER 2017-04-01 23:54 | Emergency (ER) | payer OTHER ==
[2017-04-02] MEDS ORDERED: PROMETHAZINE HCL INJ 25 MG/1 ML VIAL IM ONE (00:09)
[2017-04-02] MEDS ORDERED: NORMAL SALINE 1000 ML 1,000 ML IV ONE (00:11)
[2017-04-02] MEDS ORDERED: ONDANSETRON HCL INJ/PF 4 MG/2 ML SDV IV ONE (00:17)
--- NOTE | 2017-04-02 00:22 | ER Document Report ---
ED General - General Chief Complaint: Nausea/Vomiting Stated Complaint: VOMITING Time Seen by Provider: 04/02/17 00:06 Notes: Patient is a 26-year-old male who presents with complaint of recurrent vomiting for last 6 hours. Some upper abdominal pain is worse in the right upper quadrant. He had the same thing in June of this year and was ultimately admitted. He was discharged 24 hours later. He says that I am very worried about his gallbladder. In review of the discharge summary mentioned something about possible hepatic involvement however his liver enzymes were normal at that time. He was supposed to follow-up with his primary care doctor for further evaluation. Patient at that time also smoked marijuana. He says he quit smoking in June and has not smoked since. He still smokes cigarettes. He denies any alcohol use. No other drug use. No other complaints at this time. Patient denies any blood in his stool or vomit. TRAVEL OUTSIDE OF THE [place] IN LAST 30 DAYS: No - Related Data Allergies/Adverse Reactions: hydrocodone [From Vicodin] Allergy (Verified 06/15/16 04:38) Nausea Home Medications: Current Home Medications Omeprazole [Omeprazole] 1 tab PO DAILY 04/02/17 [History] Past Medical History - Social History Smoking Status: Current Every Day Smoker Chew tobacco use (# tins/day): No Frequency of alcohol use: None Drug Abuse: None Family History: Reviewed & Not Pertinent Patient has suicidal ideation: No Patient has homicidal ideation: No - Past Medical History Cardiac Medical History: Denies: Hx Congestive Heart Failure, Hx Coronary Artery Disease, Hx DVT, Hx Heart Attack, Hx Hypercholesterolemia, Hx Hypertension, Hx Pulmonary Embolism Pulmonary Medical History: Denies: Hx Asthma, Hx COPD Neurological Medical History: Denies: Hx Seizures Endocrine Medical History: Denies: Hx Diabetes Mellitus Type 1, Hx Diabetes Mellitus Type 2, Hx Hyperthyroidism, Hx Hypothyroidism Renal/ Medical History: Denies: Hx Peritoneal Dialysis GI Medical History: Reports: Hx Gastroesophageal Reflux Disease. Denies: Hx Cirrhosis, Hx Hepatitis, Hx Liver Failure Musculoskeltal Medical History: Denies Hx Arthritis Skin Medical History: Denies Hx Eczema, Denies Hx Psoriasis Psychiatric Medical History: Denies: Hx Depression Infectious Medical History: Denies: Hx Hepatitis Past Surgical History: Reports: Other - [place] teeth extraction - Immunizations Hx Diphtheria, Pertussis, Tetanus Vaccination: Yes - unk Review of Systems - Review of Systems Notes: My Normal Review Basic REVIEW OF SYSTEMS: CONSTITUTIONAL : Denies fever, chills, or sweats. Denies recent illness. RESPIRATORY: Denies cough, cold, or chest congestion. Denies shortness of breath, difficulty breathing, or wheezing. GASTROINTESTINAL: Some abdominal pain. nausea and vomiting. Some watery stools. MUSCULOSKELETAL: Denies neck or back pain or joint pain or swelling. SKIN: Denies rash or skin lesions. NEUROLOGICAL: Denies altered mental status or loss of consciousness. Denies headache. Denies weakness or paralysis or loss of use of either side. Denies problems with gait or speech. Denies sensory or motor loss. ALL OTHER SYSTEMS REVIEWED AND NEGATIVE. Physical Exam - Vital signs Vitals: Temp Pulse Resp BP Pulse Ox 97.5 F 83 22 H 134/75 H 99 04/01/17 23:55 04/01/17 23:55 04/01/17 23:55 04/01/17 23:55 04/01/17 23:55 - Notes Notes: General Appearance: Well nourished, alert, cooperative, no acute distress, no obvious discomfort. Vitals: reviewed, See vital signs table. Head: no swelling or tenderness to the head Eyes: PERRL, EOMI, Conjuctiva clear Mouth: No decreasd moisture Lungs: No wheezing, No rales, No rhonci, No accessory muscle use, good air exchange bilaterally. Heart: Normal rate, Regular rythm, No murmur, no rub Abdomen: Normal BS, soft, No rigidity, mild epigastric and RUQ pain to palpation Extremities: strength 5/5 in all extremities, good pulses in all extremities, no swelling or tenderness in the extremities, no edema. Skin: warm, dry, appropriate color, no rash Neuro: speech clear, oriented x 3, normal affect, responds appropriately to questions. Course - Re-evaluation Re-evalutation: 04/02/17 00:56 I suspect back the patient has cyclic vomiting syndrome. He still dry heaving but not a lot is coming up. I will give him a dose of Haldol and Benadryl. I suspect the patient has cyclic vomiting syndrome. He continues to dry heave but not a lot is coming out. I will give him a dose of Haldol and Benadryl hopefully this will help his symptoms. 04/02/17 02:30 I reevaluated the patient. He is resting in the room comfortably has not had any further vomiting since receiving the Haldol. When I ask him how he feels he says "okay". I will give him some more fluids. I am waiting for him to give a urine sample. 04/02/17 05:38 Is been tolerating ice chips and p.o. fluids. He said no further vomiting over last several hours. His urinalysis shows 20 ketones and is received 3 L of fluids. He is well-hydrated. He initially told me that he no longer smokes marijuana and he obviously does this being his drug screen is positive. I told him that we are not angry or upset that he smokes marijuana however he has got to understand that continuing smoking marijuana will reinduce cyclic vomiting. He says he understands and would no longer smokes marijuana. Encouraged him to return to the ER if he has fevers, abdominal pain, or intractable vomiting. Patient agrees with plan will be discharged home. Dictation of this chart was performed using voice recognition software; therefore, there may be some unintended grammatical errors. - Vital Signs Vital signs: Temp Pulse Resp BP Pulse Ox 97.5 F 83 15 127/70 H 99 04/01/17 23:55 04/01/17 23:55 04/02/17 04:00 04/02/17 04:00 04/02/17 04:00 - Laboratory Result Diagrams: 04/02/17 00:25 04/02/17 00:25 Laboratory results interpreted by me: 04/02/17 04/02/17 04/02/17 00:25 00:25 03:00 WBC 14.3 H Absolute Neutrophils 10.6 H Carbon Dioxide 19 L Glucose 134 H Calcium 10.3 H Total Bilirubin 2.9 H Direct Bilirubin 0.6 H Albumin 5.3 H Urine Glucose (UA) 50 H Urine Ketones 20 H Discharge - Discharge Clinical Impression: Marijuana use Cyclic vomiting syndrome Qualifiers: Vomiting Intractability: non-intractable Nausea presence: with nausea Qualified Code(s): G43.A0 - Cyclical vomiting, not intractable Condition: Good Disposition: HOME, SELF-CARE Additional Instructions: I suspect that you have cyclic vomiting syndrome. This is usually induced by marijuana use. Your drug screen was positive for marijuana. Please stop using marijuana. Please drink clear liquids over the next 24 hours and than slowly progress to a very bland diet. Return to the ER if you have recurrence of intractable vomiting, fevers, or severe abdominal pain. Phenergan is a nausea medicine that I have prescribed. This medicine occasionally can make you sleepy so please do not drive or operate machinery after taking this medication. Prescriptions: Promethazine HCl [Phenergan 25 mg Tablet] 1 tab PO Q6H PRN #15 tablet PRN Reason: Forms: Return to Work
[2017-04-02 00:53] LABS: ABSOLUTE BASOPHILS # (AUTO) 0.1 10^3/uL (0.0-0.2); ABSOLUTE EOSINOPHILS # (AUTO) 0.1 10^3/uL (0.0-0.6); ABSOLUTE LYMPHOCYTES (AUTO) 2.4 10^3/uL (0.5-4.7); ABSOLUTE MONOCYTES (AUTO) 1.1 10^3/uL (0.1-1.4); ABSOLUTE NEUT (AUTO) 10.6 10^3/uL (1.7-8.2); BASOPHILS % (AUTO) 0.6 % (0-2); EOSINOPHILS % (AUTO) 0.5 % (0-6); HEMATOCRIT 41.5 % (37.9-51.0); HEMOGLOBIN 14.6 g/dL (13.5-17.0); HGB HCT DIFFERENCE 2.3; LYMPHOCYTES % (AUTO) 17.1 % (13-45); MEAN CORPUSCULAR HEMOGLOBIN 29.4 pg (27.0-33.4); MEAN CORPUSCULAR HGB CONC 35.2 g/dL (32.0-36.0); MEAN CORPUSCULAR VOLUME 84 fl (80-97); MONOCYTES % (AUTO) 7.6 % (3-13); RED BLOOD COUNT 4.96 10^6/uL (4.35-5.55); RED CELL DISTRIBUTION WIDTH 13.3 % (11.5-14.0); SEGMENTED NEUTROPHILS % (AUTO) 74.2 % (42-78); WHITE BLOOD COUNT 14.3 10^3/uL (4.0-10.5)
[2017-04-02] MEDS ORDERED: HALOPERIDOL LACTATE INJ 5 MG/1 ML VIAL ONE (00:55)
[2017-04-02] MEDS ORDERED: HALOPERIDOL LACTATE INJ 5 MG/1 ML VIAL IM ONE (00:55)
[2017-04-02] MEDS ORDERED: DIPHENHYDRAMINE HCL 50 MG/ML VIAL IV ONE (00:56)
[2017-04-02] MEDS ORDERED: DIPHENHYDRAMINE HCL 50 MG/ML VIAL ONE (00:56)
[2017-04-02 01:05] LABS: ALANINE AMINOTRANSFERASE 23 U/L (21-72); ALBUMIN 5.3 g/dL (3.5-5.0); ALKALINE PHOSPHATASE 68 U/L (38-126); ASPARTATE AMINO TRANSFERASE 21 U/L (17-59); BILIRUBIN,DIRECT 0.6 mg/dL (0.0-0.4); BILIRUBIN,TOTAL 2.9 mg/dL (0.2-1.3); BLOOD UREA NITROGEN 8 mg/dL (7-20); CALCIUM 10.3 mg/dL (8.4-10.2); GLUCOSE 134 mg/dL (75-110); MAGNESIUM 1.9 mg/dL (1.6-2.3)
[2017-04-02 01:12] LABS: ANION GAP 19 (5-19); CARBON DIOXIDE 19 mmol/L (22-30); CHLORIDE 104 mmol/L (98-107); POTASSIUM 3.8 mmol/L (3.6-5.0); SODIUM 141.6 mmol/L (137-145)
--- NOTE | 2017-04-02 02:06 | RADIOLOGY REPORT (SQ) ---
EXAM DESCRIPTION: U/S ABDOMEN LTD W/DOPPLER COMPLETED DATE/TIME: 04/02/2017 1:44 am REASON FOR STUDY: RUQ abdominal pain COMPARISON: CT abdomen and pelvis 06/13/2016. Right upper quadrant ultrasound 06/13/2016. TECHNIQUE: Grayscale images acquired of the right upper quadrant and recorded on PACS. Additional se lected color Doppler and spectral images recorded. LIMITATIONS: Acoustical interference from fat or from air in the bowel. The patient was unable to lay supine. FINDINGS: PANCREAS: Partially by overlying bowel gas. The visualized pancreas in the midline is unr emarkable. LIVER: Measures 13.2 cm. Echotexture normal. LIVER VASCULATURE: Normal directional flow of the main portal vein. GALLBLADDER: No stones. Normal wall thickness. No pericholecystic fluid. ULTRASOUND-DETECTED CHE'S SIGN: Negative. INTRAHEPATIC DUCTS AND COMMON DUCT: CBD and intrahepatic ducts normal caliber. INFERIOR VENA CAVA: Patent. AORTA: No aneurysm in the visualized segments. RIGHT KIDNEY: Measures 9.8 cm. Normal echogenicity. No hydronephrosis. PERITONEAL CAVITY AND RIGHT PLEURAL SPACE: No ascites or effusion. IMPRESSION: No cholelithiasis or biliary ductal dilation. TECHNICAL DOCUMENTATION: JOB ID: [id number] [employer]- All Rights Reserved
[2017-04-02] MEDS ORDERED: NORMAL SALINE 1000 ML 1,000 ML IV PRN (02:27)
[2017-04-02 04:25] LABS: APPEARANCE,URINE CLEAR; BILIRUBIN,URINE NEGATIVE (NEGATIVE); GLUCOSE, URINE 50 mg/dL (NEGATIVE); KETONES,URINE 20 mg/dL (NEGATIVE); LEUKOCYTE ESTERASE,URINE NEGATIVE (NEGATIVE); NITRITE,URINE NEGATIVE (NEGATIVE); PROTEIN,URINE NEGATIVE (NEGATIVE); URINE BARBITURATES SCREEN NEGATIVE; URINE METHADONE SCREEN NEGATIVE; URINE OPIATES LOW NEGATIVE; URINE PHENCYCLIDINE SCREEN NEGATIVE; URINE SPECIFIC GRAVITY 1.014; UROBILINOGEN,URINE NEGATIVE mg/dL (<2.0)
[2017-04-02 04:37] VITALS: BP 127/70
== END 2017-04-02 04:42 | disposition home or self-care (01) ==
LOC: ER 23:54
DX: G43.A0 Cyclical vomiting, in migraine, not intractable (principal); F12.90 Cannabis use, unspecified, uncomplicated; R10.10 Upper abdominal pain, unspecified; F17.200 Nicotine dependence, unspecified, uncomplicated; Z88.6 Allergy status to analgesic agent
CPT/HCPCS: 99284; 96372; 96361; 96374; 96375; 36415; 83690; 83735; 85025; 80053; 81001; 80307; 76705; 93976; J1200; J1630; J2550; J2405; J7030

== ENCOUNTER 2017-04-04 15:58 | Emergency (ER) | payer OTHER ==
[2017-04-04] MEDS ORDERED: NORMAL SALINE 1000 ML 1,000 ML IV ONE ×4 (17:36→21:26)
[2017-04-04] MEDS ORDERED: ONDANSETRON HCL INJ/PF 4 MG/2 ML SDV IV ONE (17:38)
[2017-04-04 18:06] LABS: ABSOLUTE MONOCYTES (AUTO) 1.6 10^3/uL (0.1-1.4); BASOPHILS % (AUTO) 0.2 % (0-2); HEMATOCRIT 45.2 % (37.9-51.0); HEMOGLOBIN 15.9 g/dL (13.5-17.0); HGB HCT DIFFERENCE 2.5; MEAN CORPUSCULAR HEMOGLOBIN 29.3 pg (27.0-33.4); MEAN CORPUSCULAR HGB CONC 35.1 g/dL (32.0-36.0); MEAN CORPUSCULAR VOLUME 83 fl (80-97); MONOCYTES % (AUTO) 12.8 % (3-13); RED BLOOD COUNT 5.42 10^6/uL (4.35-5.55); WHITE BLOOD COUNT 12.7 10^3/uL (4.0-10.5)
[2017-04-04 18:17] LABS: ALANINE AMINOTRANSFERASE 33 U/L (21-72); ALBUMIN 5.9 g/dL (3.5-5.0); ALKALINE PHOSPHATASE 65 U/L (38-126); ASPARTATE AMINO TRANSFERASE 25 U/L (17-59); BILIRUBIN,TOTAL 4.4 mg/dL (0.2-1.3); BLOOD UREA NITROGEN 20 mg/dL (7-20); CALCIUM 10.8 mg/dL (8.4-10.2); CREATININE RESULT 0.89 mg/dL (0.52-1.25); GLUCOSE 99 mg/dL (75-110); MAGNESIUM 2.7 mg/dL (1.6-2.3)
--- NOTE | 2017-04-04 18:24 | ER Document Report ---
ED GI/ - General Mode of Arrival: Ambulatory Information source: Patient TRAVEL OUTSIDE OF THE [place] IN LAST 30 DAYS: No - HPI Patient complains to provider of: Abdominal pain, Vomiting Onset: Other - 3 days ago Associated symptoms: Other - see notes above <SYMONE APARICIO - Last Filed: 04/04/17 18:29> <USHALOURDES - Last Filed: 04/04/17 21:12> - General Chief Complaint: Abdominal Pain Stated Complaint: VOMITING, THROAT PAIN Time Seen by Provider: 04/04/17 17:33 Notes: 26 year old male with history of marijuana use (every other day) presents to the ED complaining of constant vomiting for the past 3 days. Patient reports that he has been unable to keep any food down and can only sip on liquids. Patient was seen by a GI specialist, Dr. Valero, and was told his vomiting is due to his marijuana use. Patient reports that he experiences intermittent epigastric abdominal pain associated with his vomiting. (SYMONE APARICIO) - Related Data Allergies/Adverse Reactions: hydrocodone [From Vicodin] Allergy (Verified 04/04/17 16:00) Nausea Home Medications: Current Home Medications Methylphenidate HCl [Concerta] 18 mg PO DAILY 04/04/17 [History] Promethazine HCl [Phenergan 25 mg Supp.rect] 1 supp AD Q6 PRN 04/04/17 [History] Past Medical History - General Information source: Patient - Social History Smoking Status: Current Every Day Smoker Frequency of alcohol use: None Drug Abuse: Marijuana Family History: Reviewed & Not Pertinent Patient has suicidal ideation: No Patient has homicidal ideation: No - Past Medical History Cardiac Medical History: Denies: Hx Congestive Heart Failure, Hx Coronary Artery Disease, Hx DVT, Hx Heart Attack, Hx Hypercholesterolemia, Hx Hypertension, Hx Pulmonary Embolism Pulmonary Medical History: Denies: Hx Asthma, Hx COPD Neurological Medical History: Denies: Hx Seizures Endocrine Medical History: Denies: Hx Diabetes Mellitus Type 1, Hx Diabetes Mellitus Type 2, Hx Hyperthyroidism, Hx Hypothyroidism Renal/ Medical History: Denies: Hx Peritoneal Dialysis GI Medical History: Reports: Hx Gastroesophageal Reflux Disease. Denies: Hx Cirrhosis, Hx Hepatitis, Hx Liver Failure Musculoskeltal Medical History: Denies Hx Arthritis Skin Medical History: Denies Hx Eczema, Denies Hx Psoriasis Psychiatric Medical History: Denies: Hx Depression Infectious Medical History: Denies: Hx Hepatitis Past Surgical History: Reports: Other - [place] teeth extraction - Immunizations Hx Diphtheria, Pertussis, Tetanus Vaccination: Yes - unk <SYMONE APARICIO - Last Filed: 04/04/17 18:29> Review of Systems - Review of Systems Constitutional: No symptoms reported EENT: No symptoms reported Cardiovascular: No symptoms reported Respiratory: No symptoms reported Gastrointestinal: See HPI, Abdominal pain - epigastric, Vomiting Genitourinary: No symptoms reported Male Genitourinary: No symptoms reported Musculoskeletal: No symptoms reported Skin: No symptoms reported Hematologic/Lymphatic: No symptoms reported Neurological/Psychological: No symptoms reported -: Yes All other systems reviewed and negative <SYMONE APARICIO - Last Filed: 04/04/17 18:29> Physical Exam - General General appearance: Alert In distress: None - HEENT Head: Normocephalic, Atraumatic Eyes: Normal Extraocular movements intact: Yes Pupils: PERRL Mucous membranes: Normal, Moist - Respiratory Respiratory status: No respiratory distress Breath sounds: Normal - Cardiovascular Rhythm: Regular Heart sounds: Normal auscultation - Abdominal Inspection: Normal Bowel sounds: Normal Tenderness: Nontender - Back Back: Normal - Extremities General upper extremity: Normal inspection, Normal ROM General lower extremity: Normal inspection, Normal ROM - Neurological Neuro grossly intact: Yes Cognition: Normal Orientation: AAOx4 [place] Coma Scale Eye Opening: Spontaneous [place] Coma Scale Verbal: Oriented [place] Coma Scale Motor: Obeys Commands [place] Coma Scale Total: 15 Speech: Normal - Psychological Associated symptoms: Normal affect, Normal mood - Skin Skin Temperature: Warm Skin Moisture: Dry Skin Color: Normal <SYMONE APARICIO - Last Filed: 04/04/17 18:29> - Vital signs Vitals: Temp Pulse Resp BP Pulse Ox 98.1 F 92 18 138/75 H 100 04/04/17 16:02 04/04/17 16:02 04/04/17 16:02 04/04/17 16:02 04/04/17 16:02 Course - Laboratory Result Diagrams: 04/04/17 17:50 04/04/17 17:50 <SYMONE APARICIO - Last Filed: 04/04/17 18:29> - Laboratory Result Diagrams: 04/04/17 17:50 04/04/17 17:50 <LOURDES KERR - Last Filed: 04/04/17 21:12> - Re-evaluation Re-evalutation: 04/04/17 21:12 I personally performed the services described in the documentation, reviewed and edited the documentation which was dictated to the scribe in my presence, and it accurately records my words and actions. (LOURDES KERR) - Vital Signs Vital signs: Temp Pulse Resp BP Pulse Ox 97.9 F 83 16 136/78 H 100 04/04/17 20:52 04/04/17 20:52 04/04/17 20:52 04/04/17 20:52 04/04/17 20:52 - Laboratory Laboratory results interpreted by me: 04/04/17 04/04/17 04/04/17 17:50 17:50 19:42 WBC 12.7 H Absolute Neutrophils 9.0 H Absolute Monocytes 1.6 H Sodium 145.8 H Potassium 3.4 L Chloride 94 L Anion Gap 23 H Calcium 10.8 H Magnesium 2.7 H Total Bilirubin 4.4 H Direct Bilirubin 1.0 H Total Protein 9.0 H Albumin 5.9 H Urine Protein 100 H Urine Ketones 80 H Urine Urobilinogen 2.0 H Scribe Documentation - Scribe Written by Veronae:: Francy Jean, 04/04/2017 1834 acting as scribe for :: Usha <SYMONE APARICIO - Last Filed: 04/04/17 18:29>
[2017-04-04 18:28] LABS: CARBON DIOXIDE 29 mmol/L (22-30); CHLORIDE 94 mmol/L (98-107); SODIUM 145.8 mmol/L (137-145)
[2017-04-04 18:33] LABS: POTASSIUM 3.4 mmol/L (3.6-5.0)
[2017-04-04 18:34] LABS: ANION GAP 23 (5-19)
[2017-04-04] MEDS ORDERED: DIPHENHYDRAMINE HCL 50 MG/ML VIAL IV ONE (19:50)
[2017-04-04] MEDS ORDERED: HALOPERIDOL LACTATE INJ 5 MG/1 ML VIAL IM ONE (19:50)
--- NOTE | 2017-04-04 19:52 | ER Document Report ---
ED GI/ - General Chief Complaint: Abdominal Pain Stated Complaint: VOMITING, THROAT PAIN Time Seen by Provider: 04/04/17 17:33 Mode of Arrival: Ambulatory Notes: Patient is a 26-year-old male that comes emergency department for chief complaint of 3 days of vomiting, he states that he can sip fluids but when he eats he vomits. He states he has had this before, he has been told he has cyclic vomiting syndrome, he does admit to marijuana use, smokes about every other day. He denies any other recreational drugs. He denies any specific areas of abdominal pain. He has been evaluated by gastroenterology. He has had a colonoscopy and endoscopy in the past he reports which were normal. He had an ultrasound about 3 days ago which was normal (when his symptoms began). He denies blood in vomit or stools. He denies any daily medications other than Concerta. TRAVEL OUTSIDE OF THE [place] IN LAST 30 DAYS: No - Related Data Allergies/Adverse Reactions: hydrocodone [From Vicodin] Allergy (Verified 04/04/17 16:00) Nausea Home Medications: Current Home Medications Methylphenidate HCl [Concerta] 18 mg PO DAILY 04/04/17 [History] Promethazine HCl [Phenergan 25 mg Supp.rect] 1 supp AD Q6 PRN 04/04/17 [History] Past Medical History - General Information source: Patient - Social History Smoking Status: Current Every Day Smoker Frequency of alcohol use: None Drug Abuse: Marijuana Lives with: Alone Family History: Reviewed & Not Pertinent Patient has suicidal ideation: No Patient has homicidal ideation: No - Past Medical History Cardiac Medical History: Denies: Hx Congestive Heart Failure, Hx Coronary Artery Disease, Hx DVT, Hx Heart Attack, Hx Hypercholesterolemia, Hx Hypertension, Hx Pulmonary Embolism Pulmonary Medical History: Denies: Hx Asthma, Hx COPD Neurological Medical History: Denies: Hx Seizures Endocrine Medical History: Denies: Hx Diabetes Mellitus Type 1, Hx Diabetes Mellitus Type 2, Hx Hyperthyroidism, Hx Hypothyroidism Renal/ Medical History: Denies: Hx Peritoneal Dialysis GI Medical History: Reports: Hx Gastroesophageal Reflux Disease. Denies: Hx Cirrhosis, Hx Hepatitis, Hx Liver Failure Musculoskeltal Medical History: Denies Hx Arthritis Skin Medical History: Denies Hx Eczema, Denies Hx Psoriasis Psychiatric Medical History: Denies: Hx Depression Infectious Medical History: Denies: Hx Hepatitis Past Surgical History: Reports: Other - [place] teeth extraction - Immunizations Hx Diphtheria, Pertussis, Tetanus Vaccination: Yes - unk Review of Systems - Review of Systems Constitutional: No symptoms reported EENT: No symptoms reported Cardiovascular: No symptoms reported Respiratory: No symptoms reported Gastrointestinal: See HPI Genitourinary: No symptoms reported Male Genitourinary: No symptoms reported Musculoskeletal: No symptoms reported Skin: No symptoms reported Hematologic/Lymphatic: No symptoms reported Neurological/Psychological: No symptoms reported Physical Exam - Vital signs Vitals: Temp Pulse Resp BP Pulse Ox 98.1 F 92 18 138/75 H 100 04/04/17 16:02 04/04/17 16:02 04/04/17 16:02 04/04/17 16:02 04/04/17 16:02 Interpretation: Normal - General General appearance: Appears well, Alert In distress: None - HEENT Head: Normocephalic, Atraumatic Eyes: Normal Conjunctiva: Normal Extraocular movements intact: Yes Eyelashes: Normal Pupils: PERRL Nasal: Normal Mouth/Lips: Normal Mucous membranes: Normal Pharynx: Normal Neck: Normal - Respiratory Respiratory status: No respiratory distress Chest status: Nontender Breath sounds: Normal. No: Decreased air movement, Wheezing Chest palpation: Normal - Cardiovascular Rhythm: Regular. No: Tachycardia Heart sounds: Normal auscultation, S1 appreciated, S2 appreciated Murmur: No - Abdominal Inspection: Normal Distension: No distension Bowel sounds: Normal Tenderness: Tender - Minimally tender in the left upper quadrant, otherwise nontender abdomen, soft, no guarding, no rigidity. No: McBurney's point, Santana 's sign, Guarding, Rebound Organomegaly: No organomegaly - Back Back: Normal, Nontender. No: Tender - Extremities General upper extremity: Normal inspection, Nontender, Normal color, Normal ROM , Normal temperature General lower extremity: Normal inspection, Nontender, Normal color, Normal ROM , Normal temperature, Normal weight bearing. No: Kailee's sign - Neurological Neuro grossly intact: Yes Cognition: Normal Orientation: AAOx4 [place] Coma Scale Eye Opening: Spontaneous [place] Coma Scale Verbal: Oriented [place] Coma Scale Motor: Obeys Commands [place] Coma Scale Total: 15 Speech: Normal Motor strength normal: LUE, RUE, LLE, RLE Sensory: Normal - Psychological Associated symptoms: Normal affect, Normal mood - Skin Skin Temperature: Warm Skin Moisture: Dry Skin Color: Normal Course - Re-evaluation Re-evalutation: Patient sitting up and well-appearing on my exam. He has minimal left upper quadrant tenderness on exam, remaining abdominal exam is completely benign including nontender right upper quadrant. LFTs are not significantly elevated, bilirubin questionable, however he had a normal ultrasound within the past 3 days and he has no abdominal tenderness. No additional vomiting. Patient's urine is very dark, on urinalysis there are 80 ketones and elevated specific gravity consistent with significant dehydration. Patient has been monitored, he has been given 3 total liters of IV fluids, given Carafate and Pepcid for suspected gastritis component, afterwards patient eating crackers, sipping fluids, he states he feels great and he wants to leave. He states that he understands that cyclic vomiting syndrome can be related to marijuana abuse, he states that he will be avoiding it because of the amount of trouble he has been having with it. He already has a life enrichment assistant to follow-up with, instructed to follow-up closely with him, discussed return precautions, patient states understanding and agreement. - Vital Signs Vital signs: Temp Pulse Resp BP Pulse Ox 98.3 F 74 20 132/78 H 100 04/05/17 00:00 04/05/17 00:00 04/05/17 00:00 04/05/17 00:00 04/05/17 00:00 - Laboratory Result Diagrams: 04/04/17 17:50 04/04/17 17:50 Laboratory results interpreted by me: 04/04/17 04/04/17 04/04/17 17:50 17:50 19:42 WBC 12.7 H Absolute Neutrophils 9.0 H Absolute Monocytes 1.6 H Sodium 145.8 H Potassium 3.4 L Chloride 94 L Anion Gap 23 H Calcium 10.8 H Magnesium 2.7 H Total Bilirubin 4.4 H Direct Bilirubin 1.0 H Total Protein 9.0 H Albumin 5.9 H Urine Protein 100 H Urine Ketones 80 H Urine Urobilinogen 2.0 H Discharge - Discharge Clinical Impression: Vomiting Qualifiers: Vomiting type: unspecified Vomiting Intractability: non-intractable Nausea presence: with nausea Qualified Code(s): R11.2 - Nausea with vomiting, unspecified Condition: Stable Disposition: HOME, SELF-CARE Additional Instructions: Your examination and workup are consistent with cyclic vomiting syndrome and gastritis. Please take the Pepcid and Carafate daily as prescribed, start with bland food, take Phenergan if needed for nausea. Avoid alcohol, smoking, spicy foods, NSAIDs until symptoms improve and resolve. Avoid marijuana. Follow-up with primary care. Return for any concerning symptoms including uncontrolled vomiting, vomiting blood, black stools, severe abdominal pain, or any other concerning symptoms. Prescriptions: Famotidine [Pepcid 20 mg Tablet] 20 mg PO BID #14 tablet Promethazine HCl [Phenergan 25 mg Tablet] 1 - 2 tab PO Q6H PRN #15 tablet PRN Reason: Sucralfate [Carafate 1 gm Tablet] 1 gm PO QID #20 tablet Forms: Return to Work
[2017-04-04 20:20] LABS: APPEARANCE,URINE SLIGHTLY-CLOUDY; BILIRUBIN,URINE NEGATIVE (NEGATIVE); GLUCOSE, URINE NEGATIVE (NEGATIVE); KETONES,URINE 80 mg/dL (NEGATIVE); LEUKOCYTE ESTERASE,URINE NEGATIVE (NEGATIVE); NITRITE,URINE NEGATIVE (NEGATIVE); PROTEIN,URINE 100 mg/dL (NEGATIVE); URINE SPECIFIC GRAVITY 1.032
[2017-04-04 20:28] LABS: RBC,URINE 0-1 /HPF
[2017-04-04 20:30] LABS: URINE BARBITURATES SCREEN NEGATIVE; URINE METHADONE SCREEN NEGATIVE; URINE OPIATES LOW NEGATIVE; URINE PHENCYCLIDINE SCREEN NEGATIVE
[2017-04-04] MEDS ORDERED: FAMOTIDINE 20 MG TABLET PO ONE (21:25)
[2017-04-05 00:02] VITALS: BP 132/78
== END 2017-04-05 00:12 | disposition home or self-care (01) ==
LOC: ER 15:58
DX: R11.2 Nausea with vomiting, unspecified (principal); R10.9 Unspecified abdominal pain; F17.200 Nicotine dependence, unspecified, uncomplicated; Z88.6 Allergy status to analgesic agent
CPT/HCPCS: 99284; 96372; 96361; 96374; 36415; 83690; 83735; 85025; 80053; 81001; 80307; J1630; J2405; J7030

== ENCOUNTER 2018-07-30 11:32 | Emergency (ER) | payer SELFPAY ==
[2018-07-30] MEDS ORDERED: ONDANSETRON HCL INJ/PF 4 MG/2 ML SDV IV ONE (11:48)
[2018-07-30] MEDS ORDERED: RINGERS SOLUTION,LACTATED 1,000 ML IV ONE ×2 (11:48→17:15)
--- NOTE | 2018-07-30 11:48 | ER Document Report ---
ED General - General Chief Complaint: Abdominal Pain Stated Complaint: ABDOMINAL PAIN,VOMITING Time Seen by Provider: 07/30/18 11:44 Primary Care Provider: VINNIE LEWIS MD [Primary Care Provider] - Follow up as needed ABDULAZIZ HARMAN MD [ACTIVE STAFF] - Follow up as needed Notes: Patient is a 28-year-old male that presents to the emergency department for chief complaint of nausea, vomiting diarrhea. Patient states that his symptoms started earlier this morning, had nausea and a few episodes of vomiting, and w atery diarrhea, both the vomiting and diarrhea have been nonbloody. He is otherwise previously healthy. He states he had some abdominal cramping, mainly lower, and nonfocal. Denies any fevers, chills, night sweats, consumption of undercooked foods. He states he does have cyclic vomiting syndrome at times, but and had an episode last week, but over seem to resolve, but he was not sure if that was going on this time, because the diarrhea occurred as well. Past Medical History: Possible cyclic vomiting syndrome Past Surgical History: Denies surgical history Social History: Admits to smoking cigarettes, denies alcohol use, admits to marijuana use Family History: Reviewed and noncontributory for presenting illness Allergies: Reviewed, see documented allergy list. REVIEW OF SYSTEMS: Other than noted above, the 12 point review of systems was reviewed with the patient and were negative, all pertinent findings are included in the HPI. PHYSICAL EXAMINATION: Vital signs reviewed, nursing noted reviewed. GENERAL: Well-appearing, well-nourished and in no acute distress. HEAD: Atraumatic, normocephalic. EYES: Eyes appear normal, extraocular movements intact, sclera anicteric, conjun ctiva are normal. ENT: nares patent, oropharynx clear without exudates. Moist mucous membranes. NECK: Normal range of motion, supple without lymphadenopathy LUNGS: Breath sounds clear to auscultation bilaterally and equal. No wheezes rales or rhonchi. HEART: Regular rate and rhythm without murmurs ABDOMEN: Soft, mild diffuse discomfort with palpation, no focal tenderness, normoactive bowel sounds. No rebound, guarding, or rigidity. No masses appreciated. EXTREMITIES: Nontender, good range of motion, no pitting or edema. NEUROLOGICAL: No focal neurological deficits. Moves all extremities spontaneously Motor and sensory grossly intact on exam. PSYCH: Normal mood, normal affect. SKIN: Warm, Dry, normal turgor, no rashes or lesions noted on exposed skin TRAVEL OUTSIDE OF THE [place] IN LAST 30 DAYS: No - Related Data Allergies/Adverse Reactions: hydrocodone [From Vicodin] Allergy (Verified 07/30/18 11:34) Nausea Past Medical History - Social History Smoking Status: Unknown if Ever Smoked Family History: Reviewed & Not Pertinent Patient has suicidal ideation: No Patient has homicidal ideation: No - Past Medical History Cardiac Medical History: Denies: Hx Congestive Heart Failure, Hx Coronary Artery Disease, Hx DVT, Hx Heart Attack, Hx Hypercholesterolemia, Hx Hypertension, Hx Pulmonary Embolism Pulmonary Medical History: Denies: Hx Asthma, Hx COPD Neurological Medical History: Denies: Hx Seizures Endocrine Medical History: Denies: Hx Diabetes Mellitus Type 1, Hx Diabetes Mellitus Type 2, Hx Hyperthyroidism, Hx Hypothyroidism Renal/ Medical History: Denies: Hx Peritoneal Dialysis GI Medical History: Reports: Hx Gastroesophageal Reflux Disease. Denies: Hx Cirrhosis, Hx Hepatitis, Hx Liver Failure Musculoskeletal Medical History: Denies Hx Arthritis Skin Medical History: Denies Hx Eczema, Denies Hx Psoriasis Psychiatric Medical History: Denies: Hx Depression Infectious Medical History: Denies: Hx Hepatitis Past Surgical History: Reports: Other - [place] teeth extraction - Immunizations Hx Diphtheria, Pertussis, Tetanus Vaccination: Yes - unk Physical Exam - Vital signs Vitals: Temp Pulse Resp BP Pulse Ox 97.6 F 84 18 116/75 100 07/30/18 11:37 07/30/18 11:37 07/30/18 11:37 07/30/18 11:37 07/30/18 11:37 Course - Re-evaluation Re-evalutation: Patient seen and examined, vital signs reviewed, patient was treated with IV fluids, blood work was obtained as well as urinalysis, only demonstrated a mild hyponatremia, patient was given Zofran, was feeling better initially, but we are waiting for blood work to return, patient started vomiting again, he was given IV Reglan, was still feeling rather nauseous, believe that the patient is having a recurrence of his cyclic vomiting, patient was placed into a bed, to be further evaluated. Patient care was taken over by Joshua Jernigan PA-C, who I discussed this case with, and oversaw care management as noted below, patient had additional episode of vomiting, was given a dose of Haldol, as I believe this is cyclic vomiting, if he does improve, will discharge the patient home 07/30/18 19:36 I personally and independently obtained patient history and examined the patient in conjunction with the APC and agree with the assessment, treatment plan and disposition of the patient as recorded by the APC, and have reviewed the APC's note. - Vital Signs Vital signs: Temp Pulse Resp BP Pulse Ox 97.6 F 84 18 116/75 100 07/30/18 11:37 07/30/18 11:37 07/30/18 11:37 07/30/18 11:37 07/30/18 11:37 - Laboratory Result Diagrams: 07/30/18 11:45 07/30/18 14:04 Laboratory results interpreted by me: 07/30/18 07/30/18 13:11 14:04 Sodium 136.8 L Ur Leukocyte Esterase TRACE H Discharge - Discharge Clinical Impression: Nausea vomiting and diarrhea Condition: Stable Disposition: HOME, SELF-CARE Instructions: Antinausea Medication ([facility]), Diarrhea, Nonspecific ([facility]), Vomiting ([facility]) Additional Instructions: Maintain adequate fluid and food intake [place] diet ([employer] Bananas, rice, apples, toast, etc Zofran as needed tylenol if needed Monitor for any worsening symptoms Make sure you are staying hydrated enough to urinate and have normal BM's Recheck with your PCM in 2-3 days Consider consult with Gastroenterology for ongoing/worsening symptoms Return to the ED with any worsening symptoms and/or development of fever, headache, chest pain, palpitations, syncope, shortness of breath, trouble breathing, abdominal pain, n/v/d, blood in stool/urine, weakness, or other worsening symptoms that are concerning to you. Prescriptions: Omeprazole 20 mg PO DAILY #14 tablet. Promethazine HCl [Phenergan 25 mg Supp.rect] 1 supp [place] BID #6 supp.rect Forms: Smoking Cessation Education Referrals: VINNIE LEWIS MD [Primary Care Provider] - Follow up as needed ABDULAZIZ HARMAN MD [ACTIVE STAFF] - Follow up as needed
[2018-07-30 12:30] LABS: ABSOLUTE BASOPHILS # (AUTO) 0.1 10^3/uL (0.0-0.2); ABSOLUTE EOSINOPHILS # (AUTO) 0.1 10^3/uL (0.0-0.6); ABSOLUTE LYMPHOCYTES (AUTO) 1.7 10^3/uL (0.5-4.7); ABSOLUTE MONOCYTES (AUTO) 0.7 10^3/uL (0.1-1.4); ABSOLUTE NEUT (AUTO) 7.1 10^3/uL (1.7-8.2); BASOPHILS % (AUTO) 0.7 % (0-2); EOSINOPHILS % (AUTO) 1.4 % (0-6); HEMATOCRIT 40.3 % (37.9-51.0); HEMOGLOBIN 14.3 g/dL (13.5-17.0); LYMPHOCYTES % (AUTO) 17.5 % (13-45); MEAN CORPUSCULAR HEMOGLOBIN 30.1 pg (27.0-33.4); MEAN CORPUSCULAR HGB CONC 35.5 g/dL (32.0-36.0); MEAN CORPUSCULAR VOLUME 85 fl (80-97); MONOCYTES % (AUTO) 7.7 % (3-13); PLATELET COUNT 271 10^3/uL (150-450); RED BLOOD COUNT 4.75 10^6/uL (4.35-5.55); RED CELL DISTRIBUTION WIDTH 13.3 % (11.5-14.0); SEGMENTED NEUTROPHILS % (AUTO) 72.7 % (42-78); TOTAL CELLS COUNTED % (AUTO) 100 %; WHITE BLOOD COUNT 9.8 10^3/uL (4.0-10.5)
[2018-07-30 14:49] LABS: ALANINE AMINOTRANSFERASE 22 U/L (21-72); ALBUMIN 4.4 g/dL (3.5-5.0); ALKALINE PHOSPHATASE 52 U/L (38-126); ANION GAP 10 (5-19); ASPARTATE AMINO TRANSFERASE 20 U/L (17-59); BILIRUBIN,DIRECT 0.2 mg/dL (0.0-0.4); BILIRUBIN,TOTAL 1.1 mg/dL (0.2-1.3); BLOOD UREA NITROGEN 9 mg/dL (7-20); CALCIUM 10.2 mg/dL (8.4-10.2); CARBON DIOXIDE 24 mmol/L (22-30); CHLORIDE 103 mmol/L (98-107); GLUCOSE 92 mg/dL (75-110); LIPASE 100.9 U/L (23-300); POTASSIUM 4.3 mmol/L (3.6-5.0); SODIUM 136.8 mmol/L (137-145); TOTAL PROTEIN 7.1 g/dL (6.3-8.2)
[2018-07-30] MEDS ORDERED: METOCLOPRAMIDE HCL INJ/PF 10 MG/2 ML SDV IV ONE (15:03)
[2018-07-30 16:23] LABS: APPEARANCE,URINE CLEAR; BILIRUBIN,URINE NEGATIVE (NEGATIVE); COLOR,URINE YELLOW; GLUCOSE, URINE NEGATIVE (NEGATIVE); KETONES,URINE NEGATIVE (NEGATIVE); LEUKOCYTE ESTERASE,URINE TRACE (NEGATIVE); NITRITE,URINE NEGATIVE (NEGATIVE); PROTEIN,URINE NEGATIVE (NEGATIVE); UROBILINOGEN,URINE NEGATIVE mg/dL (<2.0)
[2018-07-30] MEDS ORDERED: PROMETHAZINE HCL INJ 25 MG/1 ML VIAL IM ONE (17:16)
--- NOTE | 2018-07-30 17:21 | ER Document Report ---
ED General - General Chief Complaint: Abdominal Pain Stated Complaint: ABDOMINAL PAIN,VOMITING Time Seen by Provider: 07/30/18 11:44 Primary Care Provider: VINNIE LEWIS MD [Primary Care Provider] - Follow up as needed ABDULAZIZ HARMAN MD [ACTIVE STAFF] - Follow up as needed TRAVEL OUTSIDE OF THE [place] IN LAST 30 DAYS: No - HPI Notes: Triage HPI that I agree with: "Patient is a 28-year-old male that presents to the emergency department for chief complaint of nausea, vomiting diarrhea. Patient states that his symptoms started earlier this morning, had nausea and a few episodes of vomiting, and watery diarrhea, both the vomiting and diarrhea have been nonbloody. He is o therwise previously healthy. He states he had some abdominal cramping, mainly lower, and nonfocal. Denies any fevers, chills, night sweats, consumption of undercooked foods. He states he does have cyclic vomiting syndrome at times, but and had an episode last week, but over seem to resolve, but he was not sure if that was going on this time, because the diarrhea occurred as well." The last time he smoked marijuana was yesterday. He has been having dry heaves in the ED with the last episode of emesis prior to arrival. He has not had any worsening symptoms throughout his stay. Pt is requesting to have a shower here in the ED. - Related Data Allergies/Adverse Reactions: hydrocodone [From Vicodin] Allergy (Verified 07/30/18 11:34) Nausea Past Medical History - Social History Smoking Status: Current Every Day Smoker Family History: Reviewed & Not Pertinent Patient has suicidal ideation: No Patient has homicidal ideation: No - Past Medical History Cardiac Medical History: Denies: Hx Congestive Heart Failure, Hx Coronary Artery Disease, Hx DVT, Hx Heart Attack, Hx Hypercholesterolemia, Hx Hypertension, Hx Pulmonary Embolism Pulmonary Medical History: Denies: Hx Asthma, Hx COPD Neurological Medical History: Denies: Hx Seizures Endocrine Medical History: Denies: Hx Diabetes Mellitus Type 1, Hx Diabetes Mellitus Type 2, Hx Hyperthyroidism, Hx Hypothyroidism Renal/ Medical History: Denies: Hx Peritoneal Dialysis GI Medical History: Reports: Hx Gastroesophageal Reflux Disease. Denies: Hx Cirrhosis, Hx Hepatitis, Hx Liver Failure Musculoskeletal Medical History: Denies Hx Arthritis Skin Medical History: Denies Hx Eczema, Denies Hx Psoriasis Psychiatric Medical History: Denies: Hx Depression Infectious Medical History: Denies: Hx Hepatitis Past Surgical History: Reports: Other - [place] teeth extraction - Immunizations Hx Diphtheria, Pertussis, Tetanus Vaccination: Yes - unk Review of Systems - Review of Systems -: Yes All other systems reviewed and negative Physical Exam - Vital signs Vitals: Temp Pulse Resp BP Pulse Ox 97.6 F 84 18 116/75 100 07/30/18 11:37 07/30/18 11:37 07/30/18 11:37 07/30/18 11:37 07/30/18 11:37 - Notes Notes: PHYSICAL EXAMINATION: GENERAL: Well-appearing, well-nourished and in no acute distress. HEAD: Atraumatic, normocephalic. EYES: Pupils equal round and reactive to light, extraocular movements intact, sclera anicteric, conjunctiva are normal. ENT:Nares patent and without discharge. oropharynx clear without exudates. No tonsilar hypertrophy or erythema. Moist mucous membranes. NECK: Normal range of motion, supple without lymphadenopathy LUNGS: Breath sounds clear to auscultation bilaterally and equal. No wheezes rales or rhonchi. HEART: Regular rate and rhythm without murmurs, rubs, gallops. ABDOMEN: Soft, nontender, nondistended abdomen. No guarding, no rebound. No masses appreciated. Normal bowel sounds present. No CVA tenderness bilaterally. Santana negative. No tenderness at [place]. Musculoskeletal: FROM to passive/active. Strength 5+/5. Extremities: No cyanosis, clubbing, or edema b/l. Peripheral pulses 2+. Capillary refill less than 3 seconds. NEUROLOGICAL: Cranial nerves grossly intact. Normal speech, normal gait. PSYCH: Normal mood, normal affect. SKIN: Warm, Dry, normal turgor, no rashes or lesions noted. Course - Re-evaluation Re-evalutation: 07/30/18 Patient is an afebrile, well-hydrated, 28-year-old male who presents emergency department with nausea, vomiting, and diarrhea, suspect viral. Vitals are acceptable without significant tachycardia, tachypnea, or hypoxia. PE is otherw ise unremarkable. Patient's abdomen is soft and nontender. He is nontoxic- appearing and is tolerating p.o. without difficulty. He has received fluids as well as nausea medicines. He has not had any episodes of emesis throughout his stay, but has had some dry heaving. He has not had any loose stool throughout his stay. He has been able to tolerate p.o. without difficulty at this time. CBC, CMP, lipase, urinalysis unremarkable. No further labs or imaging warranted. Low suspicion/risk for acute appendicitis, bowel obstruction, acute cholecystitis, perforated diverticulitis, incarcerated hernia, pancreatitis, perforated ulcer, peritonitis, sepsis, testicular torsion, or other systemic e mergent condition at this time. Patient is aware that his condition can change from initial presentation and he needs to monitor symptoms closely and seek medical attention if any acute changes. Conservative measures otherwise for symptoms. Recheck with PCM in 2-3 days. Consider consult with a astroenterologist. Return to the ED with any worsening/concerning symptoms otherwise as reviewed in discharge. Patient is in agreement. Dr. Ribera in agreement with dispo/plan. - Vital Signs Vital signs: Temp Pulse Resp BP Pulse Ox 97.6 F 84 18 116/75 100 07/30/18 11:37 07/30/18 11:37 07/30/18 11:37 07/30/18 11:37 07/30/18 11:37 - Laboratory Result Diagrams: 07/30/18 11:45 07/30/18 14:04 Laboratory results interpreted by me: 07/30/18 07/30/18 13:11 14:04 Sodium 136.8 L Ur Leukocyte Esterase TRACE H Discharge - Discharge Clinical Impression: Nausea vomiting and diarrhea Condition: Stable Disposition: HOME, SELF-CARE Instructions: Antinausea Medication ([facility]), Diarrhea, Nonspecific ([facility]), Vo miting ([facility]) Additional Instructions: Maintain adequate fluid and food intake Childress diet ([employer] Bananas, rice, apples, toast, etc Zofran as needed tylenol if needed Monitor for any worsening symptoms Make sure you are staying hydrated enough to urinate and have normal BM's Recheck with your PCM in 2-3 days Consider consult with Gastroenterology for ongoing/worsening symptoms Return to the ED with any worsening symptoms and/or development of fever, headache, chest pain, palpitations, syncope, shortness of breath, trouble breathing, abdominal pain, n/v/d, blood in stool/urine, weakness, or other worsening symptoms that are concerning to you. Prescriptions: Omeprazole 20 mg PO DAILY #14 tablet. Promethazine HCl [Phenergan 25 mg Supp.rect] 1 supp MS BID #6 supp.rect Forms: Smoking Cessation Education Referrals: VINNIE LEWIS MD [Primary Care Provider] - Follow up as needed ABDULAZIZ HARMAN MD [ACTIVE STAFF] - Follow up as needed
[2018-07-30] MEDS ORDERED: HALOPERIDOL LACTATE INJ 5 MG/1 ML VIAL IV ONE (18:36)
[2018-07-30 19:58] VITALS: BP 128/63
== END 2018-07-30 19:58 | disposition home or self-care (01) ==
LOC: ER 11:32
DX: R11.2 Nausea with vomiting, unspecified (principal); R19.7 Diarrhea, unspecified; R10.9 Unspecified abdominal pain; F17.200 Nicotine dependence, unspecified, uncomplicated
CPT/HCPCS: 99284; 96372; 96361; 96374; 96375; 36415; 83690; 85025; 80053; 81001; J1630; J2765; J2550; J2405; J7120

== ENCOUNTER 2018-08-01 10:28 | Emergency (ER) | payer SELFPAY ==
[2018-08-01 10:35] VITALS: BP 150/82
[2018-08-01] MEDS ORDERED: HALOPERIDOL LACTATE INJ 5 MG/1 ML VIAL IM ONE (10:55)
[2018-08-01] MEDS ORDERED: DIPHENHYDRAMINE HCL 50 MG/ML VIAL IM ONE (10:55)
--- NOTE | 2018-08-01 10:57 | ER Document Report ---
ED Medical Screen (RME) - General Chief Complaint: Abdominal Pain Stated Complaint: NAUSEA Time Seen by Provider: 08/01/18 10:51 Primary Care Provider: VINNIE LEWIS MD [Primary Care Provider] - Follow up as needed Notes: 28-year-old male patient comes in with nausea and vomiting and abdominal pain. He was seen here 2 days ago and discharged with omeprazole and Phenergan suppositories. States the medicines not working and his symptoms are worse. He does admit to smoking marijuana regularly. He did notice that a hot shower seem to help the abdominal pain. I have discussed the cannabinoid hyperemesis syndrome with him and encouraged him to relay this information to the provider he sees in the main ED. I have greeted and performed a rapid initial assessment of this patient. A comprehensive ED assessment and evaluation of the patient, analysis of test results and completion of the medical decision making process will be conducted by additional ED providers. TRAVEL OUTSIDE OF THE [place] IN LAST 30 DAYS: No - Related Data Allergies/Adverse Reactions: hydrocodone [From Vicodin] Allergy (Verified 08/01/18 10:46) Nausea Past Medical History - Social History Frequency of alcohol use: None Drug Abuse: Marijuana - Past Medical History Cardiac Medical History: Denies: Hx Congestive Heart Failure, Hx Coronary Artery Disease, Hx DVT, Hx Heart Attack, Hx Hypercholesterolemia, Hx Hypertension, Hx Pulmonary Embolism Pulmonary Medical History: Denies: Hx Asthma, Hx COPD Neurological Medical History: Denies: Hx Seizures Endocrine Medical History: Denies: Hx Diabetes Mellitus Type 1, Hx Diabetes Mellitus Type 2, Hx Hyperthyroidism, Hx Hypothyroidism Renal/ Medical History: Denies: Hx Peritoneal Dialysis GI Medical History: Reports: Hx Gastroesophageal Reflux Disease. Denies: Hx Cirrhosis, Hx Hepatitis, Hx Liver Failure Musculoskeltal Medical History: Denies Hx Arthritis Skin Medical History: Denies Hx Eczema, Denies Hx Psoriasis Psychiatric Medical History: Denies: Hx Depression Infectious Medical History: Denies: Hx Hepatitis Past Surgical History: Reports: Other - [place] teeth extraction - Immunizations Hx Diphtheria, Pertussis, Tetanus Vaccination: Yes - unk Physical Exam - Vital signs Vitals: Temp Pulse Resp BP Pulse Ox 98.6 F 65 18 150/82 H 100 08/01/18 10:33 08/01/18 10:33 08/01/18 10:33 08/01/18 10:33 08/01/18 10:33 Course - Vital Signs Vital signs: Temp Pulse Resp BP Pulse Ox 98.6 F 65 18 150/82 H 100 08/01/18 10:33 08/01/18 10:33 08/01/18 10:33 08/01/18 10:33 08/01/18 10:33 Doctor's Discharge - Discharge Referrals: VINNIE LEWIS MD [Primary Care Provider] - Follow up as needed
[2018-08-01 11:37] LABS: ABSOLUTE LYMPHOCYTES (AUTO) 1.1 10^3/uL (0.5-4.7); ABSOLUTE MONOCYTES (AUTO) 0.7 10^3/uL (0.1-1.4); ABSOLUTE NEUT (AUTO) 11.6 10^3/uL (1.7-8.2); BASOPHILS % (AUTO) 0.3 % (0-2); EOSINOPHILS % (AUTO) 0.1 % (0-6); HEMOGLOBIN 15.5 g/dL (13.5-17.0); LYMPHOCYTES % (AUTO) 8.2 % (13-45); MEAN CORPUSCULAR HEMOGLOBIN 29.8 pg (27.0-33.4); MEAN CORPUSCULAR HGB CONC 35.1 g/dL (32.0-36.0); MEAN CORPUSCULAR VOLUME 85 fl (80-97); MONOCYTES % (AUTO) 5.5 % (3-13); PLATELET COUNT 331 10^3/uL (150-450); RED CELL DISTRIBUTION WIDTH 13.3 % (11.5-14.0); SEGMENTED NEUTROPHILS % (AUTO) 85.9 % (42-78); TOTAL CELLS COUNTED % (AUTO) 100 %; WHITE BLOOD COUNT 13.5 10^3/uL (4.0-10.5)
[2018-08-01 11:47] LABS: ALANINE AMINOTRANSFERASE 26 U/L (21-72); ALBUMIN 5.1 g/dL (3.5-5.0); ALKALINE PHOSPHATASE 66 U/L (38-126); ANION GAP 16 (5-19); ASPARTATE AMINO TRANSFERASE 24 U/L (17-59); BILIRUBIN,DIRECT 0.3 mg/dL (0.0-0.4); BILIRUBIN,TOTAL 1.8 mg/dL (0.2-1.3); BLOOD UREA NITROGEN 15 mg/dL (7-20); CALCIUM 10.6 mg/dL (8.4-10.2); CARBON DIOXIDE 25 mmol/L (22-30); CHLORIDE 100 mmol/L (98-107); CREATINE KINASE 157 U/L (55-170); GLUCOSE 152 mg/dL (75-110); POTASSIUM 3.5 mmol/L (3.6-5.0); SODIUM 140.6 mmol/L (137-145); TOTAL PROTEIN 8.4 g/dL (6.3-8.2)
--- NOTE | 2018-08-01 13:30 | ER Document Report ---
ED GI/ - General Chief Complaint: Abdominal Pain Stated Complaint: NAUSEA Time Seen by Provider: 08/01/18 10:51 Primary Care Provider: VINNIE LEWIS MD [Primary Care Provider] - Follow up as needed Mode of Arrival: Ambulatory Information source: Patient Notes: Patient is a 28-year-old male who presents the emergency department with chief complaint of nausea and vomiting. Patient reports this is been ongoing for 2 days currently he states he was seen here in the emergency department and discharged home with Phenergan suppositories. Patient reports in total his vomiting has been going on intermittently over the last 2 years. Patient reports smoking 1 g of marijuana nightly. Patient reports he has been seen by other medical providers who suggested that his vomiting is from his marijuana use however the patient does not agree with this. TRAVEL OUTSIDE OF THE [place] IN LAST 30 DAYS: No - Related Data Allergies/Adverse Reactions: hydrocodone [From Vicodin] Allergy (Verified 08/01/18 18:59) Nausea Past Medical History - General Information source: Patient - Social History Smoking Status: Current Every Day Smoker Frequency of alcohol use: None Drug Abuse: Marijuana - one bowl daily Family History: Reviewed & Not Pertinent Patient has suicidal ideation: No Patient has homicidal ideation: No - Past Medical History Cardiac Medical History: Denies: Hx Congestive Heart Failure, Hx Coronary Artery Disease, Hx DVT, Hx Heart Attack, Hx Hypercholesterolemia, Hx Hypertension, Hx Pulmonary Embolism Pulmonary Medical History: Denies: Hx Asthma, Hx COPD Neurological Medical History: Denies: Hx Seizures Endocrine Medical History: Denies: Hx Diabetes Mellitus Type 1, Hx Diabetes Mellitus Type 2, Hx Hyperthyroidism, Hx Hypothyroidism Renal/ Medical History: Denies: Hx Peritoneal Dialysis GI Medical History: Reports: Hx Gastroesophageal Reflux Disease. Denies: Hx Cirrhosis, Hx Hepatitis, Hx Liver Failure Musculoskeletal Medical History: Denies Hx Arthritis Skin Medical History: Denies Hx Eczema, Denies Hx Psoriasis Psychiatric Medical History: Denies: Hx Depression Infectious Medical History: Denies: Hx Hepatitis Past Surgical History: Reports: Other - [place] teeth extraction - Immunizations Hx Diphtheria, Pertussis, Tetanus Vaccination: Yes - unk Review of Systems - Review of Systems Constitutional: No symptoms reported. denies: Fever EENT: No symptoms reported Cardiovascular: No symptoms reported Respiratory: No symptoms reported Gastrointestinal: No symptoms reported, Abdominal pain - Intermittent, Nausea, Vomiting Genitourinary: No symptoms reported Male Genitourinary: No symptoms reported Musculoskeletal: No symptoms reported Skin: No symptoms reported Hematologic/Lymphatic: No symptoms reported Neurological/Psychological: No symptoms reported Physical Exam - Vital signs Vitals: Temp Pulse Resp BP Pulse Ox 98.6 F 65 18 150/82 H 100 08/01/18 10:33 08/01/18 10:33 08/01/18 10:33 08/01/18 10:33 08/01/18 10:33 - Notes Notes: PHYSICAL EXAMINATION: GENERAL: Well-nourished and in no acute distress. HEAD: Atraumatic, normocephalic. EYES: Pupils equal round and reactive to light, extraocular movements intact, sclera anicteric, conjunctiva are normal. ENT: Nares patent, oropharynx clear without exudates. Moist mucous membranes. NECK: Normal range of motion, supple without lymphadenopathy LUNGS: Breath sounds clear to auscultation bilaterally and equal. No wheezes rales or rhonchi. HEART: Regular rate and rhythm without murmurs ABDOMEN: Soft, nontender, nondistended abdomen. No guarding, no rebound. No masses appreciated. Musculoskeletal: Normal range of motion, no pitting or edema. No cyanosis. NEUROLOGICAL: Cranial nerves grossly intact. Normal speech, normal gait. Normal sensory, motor exams PSYCH: Normal mood, normal affect. SKIN: Warm, Dry, normal turgor, no rashes or lesions noted. Course - Re-evaluation Re-evalutation: At the time of my evaluation patient has already been seen by provider in triage and his labs are resulted. Patient was already medicated with Haldol and Benadryl. Patient reports that his symptoms have resolved. Patient's abdomen is soft and nontender at this time with no guarding and no rebound. Patient denies any abdominal pain. Patient does report that he smokes marijuana every night, he states he smokes about $20 worth which he describes as a "bowl". Patient reports his intermittent abdominal pain with vomiting has been going on for 2 years. He states that several medical providers have told him it is possibly due to his marijuana use. Patient's labs show an elevated white blood count of 13.5, likely secondary to vomiting. Mild hypokalemia with a potassium of 3.5. Given the patient's symptoms have improved after administration of Benadryl and Haldol no imaging is indicated, patient will be discharged home. Patient reports that the only thing that helps with his nausea is Phenergan supp ositories. Patient reports he has run out of these. Prescription for Phenergan suppositories will be given. Patient encouraged to stop smoking marijuana. - Vital Signs Vital signs: Temp Pulse Resp BP Pulse Ox 98.6 F 65 18 150/82 H 100 08/01/18 10:33 08/01/18 10:33 08/01/18 10:33 08/01/18 10:33 08/01/18 10:33 - Laboratory Result Diagrams: 08/01/18 11:19 08/01/18 11:19 Laboratory results interpreted by me: 08/01/18 08/01/18 11:19 11:19 WBC 13.5 H Seg Neutrophils % 85.9 H Lymphocytes % 8.2 L Absolute Neutrophils 11.6 H Potassium 3.5 L Glucose 152 H Calcium 10.6 H Total Bilirubin 1.8 H Total Protein 8.4 H Albumin 5.1 H Discharge - Discharge Clinical Impression: Cyclical vomiting with nausea Qualifiers: Vomiting Intractability: non-intractable Qualified Code(s): G43.A0 - Cyclical vomiting, not intractable Condition: Stable Disposition: HOME, SELF-CARE Additional Instructions: Your signs and symptoms today are most consistent with marijuana induced hyperemesis syndrome also known as cannabinoid hyperemesis syndrome. This syndrome typically occurs in people who have smoked marijuana for many years without any symptoms of any kind and can start abruptly. Your symptoms will in general improve if you take a hot shower but ultimately the only cure to this illness is to discontinue the use of marijuana. Once you have developed this syndrome you typically will have recurrence of your symptoms anytime you smoke. If you do have recurrence of these symptoms, you may apply topical capsaicin cream to your abdomen which can be purchased [id number]. Return to the emergency department if you have vomiting that you cannot stop, you pass out, or you have any other symptoms that are worrisome to you. Prescriptions: Promethazine HCl [Phenergan 25 mg Supp.rect] 1 supp NE Q6H #12 supp.rect Referrals: VINNIE LEWIS MD [Primary Care Provider] - Follow up as needed
== END 2018-08-01 13:38 | disposition home or self-care (01) ==
LOC: ER 10:28
DX: G43.A0 Cyclical vomiting, in migraine, not intractable (principal); R10.9 Unspecified abdominal pain; F17.200 Nicotine dependence, unspecified, uncomplicated; Z88.6 Allergy status to analgesic agent
CPT/HCPCS: 99284; 96372; 36415; 82550; 85025; 80053; J1200; J1630

== ENCOUNTER 2018-08-01 18:58 | Emergency (ER) | payer SELFPAY ==
[2018-08-01] MEDS ORDERED: DIPHENHYDRAMINE HCL 50 MG/ML VIAL IM ONE (19:27)
[2018-08-01] MEDS ORDERED: HALOPERIDOL LACTATE INJ 5 MG/1 ML VIAL IM ONE (19:28)
--- NOTE | 2018-08-01 19:28 | ER Document Report ---
ED Medical Screen (RME) - General Chief Complaint: Nausea/Vomiting Stated Complaint: NAUSEA/VOMITING Time Seen by Provider: 08/01/18 19:19 Primary Care Provider: VINNIE LEWIS MD [Primary Care Provider] - Follow up as needed Notes: 28-year-old male patient who most likely has cannabinoid hyperemesis syndrome comes emergency room for the third time today. Was seen in the RME today about 11 AM and given Haldol 5 mg IM with Benadryl 25 mg IM. He states that that injection did help his pain and vomiting at the time. He was discharged with another prescription for Phenergan suppositories. He did not get any capsaicin cream to try. He states that the hot shower this afternoon did not seem to help as well as it had previously. At this time he is more agreeable to the diagnosis of hyperemesis syndrome. His lab work done early this morning and about noon today showed a significant increase in his hemoglobin. I have greeted and performed a rapid initial assessment of this patient. A comprehensive ED assessment and evaluation of the patient, analysis of test results and completion of the medical decision making process will be conducted by additional ED providers. TRAVEL OUTSIDE OF THE [place] IN LAST 30 DAYS: No - Related Data Allergies/Adverse Reactions: hydrocodone [From Vicodin] Allergy (Verified 08/01/18 18:59) Nausea Past Medical History - Social History Frequency of alcohol use: None Drug Abuse: Marijuana - Past Medical History Cardiac Medical History: Denies: Hx Congestive Heart Failure, Hx Coronary Artery Disease, Hx DVT, Hx Heart Attack, Hx Hypercholesterolemia, Hx Hypertension, Hx Pulmonary Embolism Pulmonary Medical History: Denies: Hx Asthma, Hx COPD Neurological Medical History: Denies: Hx Seizures Endocrine Medical History: Denies: Hx Diabetes Mellitus Type 1, Hx Diabetes Mellitus Type 2, Hx Hyperthyroidism, Hx Hypothyroidism Renal/ Medical History: Denies: Hx Peritoneal Dialysis GI Medical History: Reports: Hx Gastroesophageal Reflux Disease. Denies: Hx Cirrhosis, Hx Hepatitis, Hx Liver Failure Musculoskeltal Medical History: Denies Hx Arthritis Skin Medical History: Denies Hx Eczema, Denies Hx Psoriasis Psychiatric Medical History: Denies: Hx Depression Infectious Medical History: Denies: Hx Hepatitis Past Surgical History: Reports: Other - [place] teeth extraction - Immunizations Hx Diphtheria, Pertussis, Tetanus Vaccination: Yes - unk Physical Exam - Vital signs Vitals: Temp Pulse Resp BP Pulse Ox 98.7 F 72 18 150/87 H 100 08/01/18 19:02 08/01/18 19:02 08/01/18 19:02 08/01/18 19:02 08/01/18 19:02 Course - Vital Signs Vital signs: Temp Pulse Resp BP Pulse Ox 98.7 F 72 18 150/87 H 100 08/01/18 19:02 08/01/18 19:02 08/01/18 19:02 08/01/18 19:02 08/01/18 19:02 Doctor's Discharge - Discharge Referrals: VINNIE LEWIS MD [Primary Care Provider] - Follow up as needed
[2018-08-01] MEDS ORDERED: RINGERS SOLUTION,LACTATED 1,000 ML IV ONE (20:51)
[2018-08-01] MEDS ORDERED: ONDANSETRON HCL INJ/PF 4 MG/2 ML SDV IV ONE (20:51)
--- NOTE | 2018-08-01 20:54 | ER Document Report ---
ED General - General Chief Complaint: Nausea/Vomiting Stated Complaint: NAUSEA/VOMITING Time Seen by Provider: 08/01/18 19:19 Primary Care Provider: VINNIE LEWIS MD [Primary Care Provider] - Follow up as needed Notes: Patient is a 28-year-old male without chronic medical problems no prior abdominal surgical history who presents with 3-4 days of nausea, vomiting, abdominal cramping and diarrhea. He has been seen on 2 previous occasions in the emergency department for the same. Patient states that he has intermittent able to tolerate oral intake but then again developed vomiting. Describes his abdominal pain as being moderate, cramping, diffuse in nature. Nothing seems to improve his symptoms. He does not relate smoking marijuana to his symptoms. States that he has had 2 similar episodes of the course of the past 2 years. He states that he is often able to smoke marijuana without developing any symptoms of any kind. He denies any melena, hematochezia or hematemesis. Denies fever. TRAVEL OUTSIDE OF THE [place] IN LAST 30 DAYS: No - Related Data Allergies/Adverse Reactions: hydrocodone [From Vicodin] Allergy (Verified 08/01/18 18:59) Nausea Past Medical History - General Information source: Patient - Social History Smoking Status: Current Every Day Smoker Frequency of alcohol use: None Drug Abuse: Marijuana Family History: Reviewed & Not Pertinent Patient has suicidal ideation: No Patient has homicidal ideation: No - Past Medical History Cardiac Medical History: Denies: Hx Congestive Heart Failure, Hx Coronary Artery Disease, Hx DVT, Hx Heart Attack, Hx Hypercholesterolemia, Hx Hypertension, Hx Pulmonary Embolism Pulmonary Medical History: Denies: Hx Asthma, Hx COPD Neurological Medical History: Denies: Hx Seizures Endocrine Medical History: Denies: Hx Diabetes Mellitus Type 1, Hx Diabetes Mellitus Type 2, Hx Hyperthyroidism, Hx Hypothyroidism Renal/ Medical History: Denies: Hx Peritoneal Dialysis GI Medical History: Reports: Hx Gastroesophageal Reflux Disease. Denies: Hx Cirrhosis, Hx Hepatitis, Hx Liver Failure Musculoskeletal Medical History: Denies Hx Arthritis Skin Medical History: Denies Hx Eczema, Denies Hx Psoriasis Psychiatric Medical History: Denies: Hx Depression Infectious Medical History: Denies: Hx Hepatitis Past Surgical History: Reports: Other - [place] teeth extraction - Immunizations Hx Diphtheria, Pertussis, Tetanus Vaccination: Yes - unk Review of Systems - Review of Systems Notes: Constitutional: Negative for fever. HENT: Negative for sore throat. Eyes: Negative for visual changes. Cardiovascular: Negative for chest pain. Respiratory: Negative for shortness of breath. Gastrointestinal: Positive for abdominal cramping, vomiting and diarrhea Genitourinary: Negative for dysuria. Musculoskeletal: Negative for back pain. Skin: Negative for rash. Neurological: Negative for headaches, weakness or numbness. 10 point ROS negative except as marked above and in HPI. Physical Exam - Vital signs Vitals: Temp Pulse Resp BP Pulse Ox 98.7 F 72 18 150/87 H 100 08/01/18 19:02 08/01/18 19:02 08/01/18 19:02 08/01/18 19:02 08/01/18 19:02 Interpretation: Hypertensive Notes: PHYSICAL EXAMINATION: GENERAL: Well-appearing, well-nourished and in no acute distress. HEAD: Atraumatic, normocephalic. EYES: Pupils equal round and reactive to light, extraocular movements intact, sclera anicteric, conjunctiva are normal. ENT: nares patent, oropharynx clear without exudates. Moderately dry mucous membranes. NECK: Normal range of motion, supple without lymphadenopathy LUNGS: Breath sounds clear to auscultation bilaterally and equal. No wheezes rales or rhonchi. HEART: Regular rate and rhythm without murmurs ABDOMEN: Soft, nontender, normoactive bowel sounds. No guarding, no rebound. No masses appreciated. EXTREMITIES: Normal range of motion, no pitting or edema. No cyanosis. NEUROLOGICAL: No focal neurological deficits. Moves all extremities spontaneously and on command. PSYCH: Normal mood, normal affect. SKIN: Warm, Dry, normal turgor, no rashes or lesions noted. Course - Re-evaluation Re-evalutation: 08/01/18 20:53 Patient presents with nausea, vomiting, diarrhea for at least the past 3 days. On exam the patient is overall well in appearance although appears moderately dehydrated. His abdominal exam is completely benign without any areas of focal tenderness, rebound or guarding. Patient has had recurrent presentations dating back to 2017 regarding this issue. His abdominal exam being without any tend erness as well as repeatedly reassuring labs do not go with a diagnosis of pancreatitis or biliary pathology. No history to suggest obstruction. The patient does admit that he felt better yesterday, smoked marijuana again and developed his symptoms again. Parts of his history are consistent with cannabis induced hyperemesis syndrome although if the patient is being truthful that it does not happen each time he smokes this would not be consistent with a diagnosis of cannabis induced hyperemesis syndrome as we would expect vomiting with each use of marijuana. I have strongly advised the patient that he should discontinue smoking marijuana and see if this does result in resolution of his symptoms. Repeat labs today again are reassuring. I do not believe abdominal imaging is required at this time given benign abdominal exam and history of recurrent similar symptoms. Patient is in agreement. He has received IV fluids, has been able to tolerate oral intake here in the emergency department. At this time will discharge with return precautions and follow-up recommendations. Verbal discharge instructions given a the bedside and opportunity for questions given. Medication warnings reviewed. Patient is in agreement with this plan and has verbalized understanding of return precautions and the need for primary care follow-up in the next 24-72 hours. - Vital Signs Vital signs: Temp Pulse Resp BP Pulse Ox 98.7 F 72 18 150/87 H 100 08/01/18 19:02 08/01/18 19:02 08/01/18 19:02 08/01/18 19:02 08/01/18 19:02 Discharge - Discharge Clinical Impression: Nausea vomiting and diarrhea Cyclical vomiting with nausea Qualifiers: Vomiting Intractability: non-intractable Qualified Code(s): G43.A0 - Cyclical vomiting, not intractable Condition: Good Disposition: HOME, SELF-CARE Additional Instructions: You have been seen in the Emergency Department (ED) today for nausea and vomiting. Your work up today has not shown a clear cause for your symptoms. You have been prescribed Zofran; please use as prescribed as needed for your nausea. Follow up with your doctor as soon as possible regarding today's emergent visit and your symptoms of nausea. Return to the Emergency Department (ED) if you develop abdominal pain, bloody vomiting, bloody diarrhea, if you are unable to tolerate fluids due to vomiting, or if you develop other symptoms that concern you. Please discontinue smoking marijuana to see if this results in resolution of your symptoms. If you smoke marijuana again and developed the symptoms again your diagnosis would definitively be cannabis induced hyperemesis syndrome. If this is the case each time you smoke marijuana going forward he will likely have recurrence of the symptoms. Referrals: VINNIE LEWIS MD [Primary Care Provider] - Follow up tomorrow
[2018-08-01] MEDS ORDERED: ONDANSETRON ODT 4 MG TAB (6 TAB/ER DISP) PO PRN (20:57)
[2018-08-01 21:33] LABS: ALANINE AMINOTRANSFERASE 24 U/L (21-72); ALBUMIN 4.9 g/dL (3.5-5.0); ALKALINE PHOSPHATASE 49 U/L (38-126); ANION GAP 12 (5-19); ASPARTATE AMINO TRANSFERASE 38 U/L (17-59); BILIRUBIN,DIRECT 0.2 mg/dL (0.0-0.4); BILIRUBIN,TOTAL 1.9 mg/dL (0.2-1.3); BLOOD UREA NITROGEN 14 mg/dL (7-20); CALCIUM 10.2 mg/dL (8.4-10.2); CARBON DIOXIDE 29 mmol/L (22-30); CHLORIDE 100 mmol/L (98-107); GLUCOSE 104 mg/dL (75-110); LIPASE 56.8 U/L (23-300); POTASSIUM 3.6 mmol/L (3.6-5.0); SODIUM 141.4 mmol/L (137-145); TOTAL PROTEIN 7.8 g/dL (6.3-8.2)
[2018-08-01 22:49] VITALS: BP 137/75
== END 2018-08-01 22:49 | disposition home or self-care (01) ==
LOC: ER 18:58
DX: G43.A0 Cyclical vomiting, in migraine, not intractable (principal); R10.9 Unspecified abdominal pain; R19.7 Diarrhea, unspecified; F17.200 Nicotine dependence, unspecified, uncomplicated; Z88.6 Allergy status to analgesic agent
CPT/HCPCS: 99283; 96372; 96361; 96374; 36415; 83690; 80053; J1200; J1630; J2405; J7120

== ENCOUNTER 2019-03-28 08:29 | Emergency (ER) | payer SELFPAY ==
[2019-03-28] MEDS ORDERED: ONDANSETRON HCL INJ/PF 4 MG/2 ML SDV IV ONE ×2 (09:02→13:21)
[2019-03-28] MEDS ORDERED: NORMAL SALINE 1000 ML 1,000 ML IV ONE ×3 (09:02→13:20)
[2019-03-28 09:48] LABS: ABSOLUTE BASOPHILS # (AUTO) 0.1 10^3/uL (0.0-0.2); ABSOLUTE EOSINOPHILS # (AUTO) 0.1 10^3/uL (0.0-0.6); ABSOLUTE MONOCYTES (AUTO) 1.3 10^3/uL (0.1-1.4); ABSOLUTE NEUT (AUTO) 12.4 10^3/uL (1.7-8.2); BASOPHILS % (AUTO) 0.7 % (0-2); EOSINOPHILS % (AUTO) 0.4 % (0-6); HEMATOCRIT 43.7 % (37.9-51.0); HEMOGLOBIN 15.3 g/dL (13.5-17.0); LYMPHOCYTES % (AUTO) 17.9 % (13-45); MEAN CORPUSCULAR HEMOGLOBIN 29.7 pg (27.0-33.4); MEAN CORPUSCULAR HGB CONC 35.1 g/dL (32.0-36.0); MEAN CORPUSCULAR VOLUME 85 fl (80-97); MONOCYTES % (AUTO) 7.9 % (3-13); PLATELET COUNT 349 10^3/uL (150-450); RED BLOOD COUNT 5.16 10^6/uL (4.35-5.55); RED CELL DISTRIBUTION WIDTH 13.1 % (11.5-14.0); SEGMENTED NEUTROPHILS % (AUTO) 73.1 % (42-78); TOTAL CELLS COUNTED % (AUTO) 100 %; WHITE BLOOD COUNT 16.9 10^3/uL (4.0-10.5)
--- NOTE | 2019-03-28 09:59 | ER Document Report ---
ED Medical Screen (RME) - General Chief Complaint: Abdominal Pain Stated Complaint: VOMITING Time Seen by Provider: 03/28/19 09:53 Mode of Arrival: Ambulatory Information source: Patient Notes: 28-year-old male presented to ED for complaint of nausea and vomiting since Friday. He states he has vomited 4 or 5 times today. He states he has generalized abdominal pain since Friday. Does smoke marijuana daily. He states that is not the cause of his nausea at this time. He is alert and or iented. Abdomen is soft tender generalized. Bowel sounds are active. I have greeted and performed a rapid initial assessment of this patient. A comprehensive ED assessment and evaluation of the patient, analysis of test results and completion of medical decision making process will be conducted by an additional ED providers. TRAVEL OUTSIDE OF THE [place] IN LAST 30 DAYS: No - Related Data Allergies/Adverse Reactions: hydrocodone [From Vicodin] Allergy (Verified 08/28/18 09:55) Nausea Past Medical History - Social History Chew tobacco use (# tins/day): No Frequency of alcohol use: None Drug Abuse: Marijuana - Past Medical History Cardiac Medical History: Denies: Hx Congestive Heart Failure, Hx Coronary Artery Disease, Hx DVT, Hx Heart Attack, Hx Hypercholesterolemia, Hx Hypertension, Hx Pulmonary Embolism Pulmonary Medical History: Denies: Hx Asthma, Hx COPD Neurological Medical History: Denies: Hx Seizures Endocrine Medical History: Denies: Hx Diabetes Mellitus Type 1, Hx Diabetes Mellitus Type 2, Hx Hyperthyroidism, Hx Hypothyroidism Renal/ Medical History: Denies: Hx Peritoneal Dialysis GI Medical History: Reports: Hx Gastroesophageal Reflux Disease. Denies: Hx Cirrhosis, Hx Hepatitis, Hx Liver Failure Musculoskeltal Medical History: Denies Hx Arthritis Skin Medical History: Denies Hx Eczema, Denies Hx Psoriasis Psychiatric Medical History: Denies: Hx Depression Infectious Medical History: Denies: Hx Hepatitis Past Surgical History: Reports: Other - [place] teeth extraction - Immunizations Hx Diphtheria, Pertussis, Tetanus Vaccination: Yes - unk Physical Exam - Vital signs Vitals: Temp Pulse Resp BP Pulse Ox 97.5 F 98 18 150/87 H 99 03/28/19 08:34 03/28/19 08:34 03/28/19 08:34 03/28/19 08:34 03/28/19 08:34 Course - Vital Signs Vital signs: Temp Pulse Resp BP Pulse Ox 97.5 F 98 18 150/87 H 99 03/28/19 08:34 03/28/19 08:34 03/28/19 08:34 03/28/19 08:34 03/28/19 08:34 - Laboratory Result Diagrams: 03/28/19 09:29 03/28/19 09:29
[2019-03-28 10:10] LABS: ALBUMIN 5.3 g/dL (3.5-5.0); ALKALINE PHOSPHATASE 65 U/L (38-126); ANION GAP 16 (5-19); ASPARTATE AMINO TRANSFERASE 21 U/L (17-59); BILIRUBIN,DIRECT 0.2 mg/dL (0.0-0.4); BILIRUBIN,TOTAL 2.2 mg/dL (0.2-1.3); BLOOD UREA NITROGEN 13 mg/dL (7-20); CALCIUM 10.6 mg/dL (8.4-10.2); CARBON DIOXIDE 25 mmol/L (22-30); CHLORIDE 102 mmol/L (98-107); GLUCOSE 123 mg/dL (75-110); POTASSIUM 3.8 mmol/L (3.6-5.0); TOTAL PROTEIN 8.3 g/dL (6.3-8.2)
[2019-03-28 10:30] LABS: APPEARANCE,URINE SLIGHTLY-CLOUDY; BILIRUBIN,URINE NEGATIVE (NEGATIVE); COLOR,URINE YELLOW; GLUCOSE, URINE 50 mg/dL (NEGATIVE); KETONES,URINE 80 mg/dL (NEGATIVE); LEUKOCYTE ESTERASE,URINE NEGATIVE (NEGATIVE); NITRITE,URINE NEGATIVE (NEGATIVE); PROTEIN,URINE >=500 mg/dL (NEGATIVE); URINE SPECIFIC GRAVITY 1.019; UROBILINOGEN,URINE NEGATIVE mg/dL (<2.0)
--- NOTE | 2019-03-28 10:49 | ER Document Report ---
ED GI/ - General Chief Complaint: Abdominal Pain Stated Complaint: VOMITING Time Seen by Provider: 03/28/19 09:53 Mode of Arrival: Ambulatory Notes: Patient is a 28-year-old male without chronic medical problems and no prior abdominal surgical history who presents with nausea, vomiting, and diarrhea for the past 1 week that is been intermittent but is now constant. He has been seen on 4 previous occasions in the emergency department for the same. Cannot tolerate oral intake. Describes his abdominal pain as being moderate, cramping, diffuse in nature. Nothing seems to improve his symptoms. He does not relate smoking marijuana to his symptoms. States that he has had multiple similar episodes over the course of the past 2 years. He states that he is often able to smoke marijuana without developing any symptoms of any kind. He denies any melena, hematochezia or hematemesis. Denies fever. TRAVEL OUTSIDE OF THE [place] IN LAST 30 DAYS: No - Related Data Allergies/Adverse Reactions: hydrocodone [From Vicodin] Allergy (Verified 08/28/18 09:55) Nausea Past Medical History - General Information source: Patient - Social History Smoking Status: Current Every Day Smoker Chew tobacco use (# tins/day): No Frequency of alcohol use: None Drug Abuse: Marijuana Family History: Reviewed & Not Pertinent Patient has suicidal ideation: No Patient has homicidal ideation: No - Past Medical History Cardiac Medical History: Denies: Hx Congestive Heart Failure, Hx Coronary Artery Disease, Hx DVT, Hx Heart Attack, Hx Hypercholesterolemia, Hx Hypertension, Hx Pulmonary Embolism Pulmonary Medical History: Denies: Hx Asthma, Hx COPD Neurological Medical History: Denies: Hx Seizures Endocrine Medical History: Denies: Hx Diabetes Mellitus Type 1, Hx Diabetes Mellitus Type 2, Hx Hyperthyroidism, Hx Hypothyroidism Renal/ Medical History: Denies: Hx Peritoneal Dialysis GI Medical History: Reports: Hx Gastroesophageal Reflux Disease. Denies: Hx Cirrhosis, Hx Hepatitis, Hx Liver Failure Musculoskeletal Medical History: Denies Hx Arthritis Skin Medical History: Denies Hx Eczema, Denies Hx Psoriasis Psychiatric Medical History: Denies: Hx Depression Infectious Medical History: Denies: Hx Hepatitis Past Surgical History: Reports: Other - [place] teeth extraction - Immunizations Hx Diphtheria, Pertussis, Tetanus Vaccination: Yes - unk Review of Systems - Review of Systems Constitutional: See HPI EENT: No symptoms reported Cardiovascular: No symptoms reported Respiratory: No symptoms reported Gastrointestinal: See HPI Genitourinary: No symptoms reported Male Genitourinary: No symptoms reported Musculoskeletal: No symptoms reported Skin: No symptoms reported Hematologic/Lymphatic: No symptoms reported Neurological/Psychological: See HPI Physical Exam - Vital signs Vitals: Temp Pulse Resp BP Pulse Ox 97.5 F 98 18 150/87 H 99 03/28/19 08:34 03/28/19 08:34 03/28/19 08:34 03/28/19 08:34 03/28/19 08:34 - Notes Notes: PHYSICAL EXAMINATION: Reviewed vital signs and charting by RN GENERAL: Alert, interacts well. No acute distress. HEAD: Normocephalic, atraumatic. EYES: Pupils equal and round. Extraocular movements intact. ENT: Oral mucosa moist, tongue midline. NECK: Full range of motion. Trachea midline. LUNGS: Clear to auscultation bilaterally, no wheezes, rales, or rhonchi. No respiratory distress. HEART: Regular rate and rhythm. No murmur ABDOMEN: soft, generalized tenderness to deep palpation. No distention. Bowel sounds present EXTREMITIES: Moves all 4 extremities spontaneously. No edema, No cyanosis. PSYCH: Normal affect, normal mood. SKIN: Warm, dry, normal turgor. No rashes or lesions noted. Course - Re-evaluation Re-evalutation: 03/28/19 10:57 Patient is nontoxic-appearing. Lab work all within normal limits. Patient has received normal saline 1 L IV and said he got some Zofran IV without resolution. Patient states that Phenergan works for him so I am going to give him Phenergan 50 mg IM once and an additional normal saline 1 L. Differential includes a viral gastroenteritis versus hyperemesis secondary to cannabinoid use. 03/28/19 13:21 Phenergan was administered and I checked approximately 45 minutes later and patient did not get any relief. Father was in the room and was frustrated b ecause he said this has happened frequently in the past and he believes it is secondary to marijuana use. I am going to give the patient 1/3 L of fluids and give him some Zofran IV. Also, I have ordered capsaicin cream to be applied. Patient does admit that when he takes steaming hot showers his symptoms do improve supporting the diagnosis of hyperemesis secondary to cannabinoid abuse. 03/28/19 17:56 Patient tolerated p.o. intake and is stable for discharge. He was educated on his marijuana use. - Vital Signs Vital signs: Temp Pulse Resp BP Pulse Ox 97.6 F 60 16 145/93 H 100 03/28/19 15:49 03/28/19 15:49 03/28/19 15:49 03/28/19 15:49 03/28/19 15:49 - Laboratory Result Diagrams: 03/28/19 09:29 03/28/19 09:29 Laboratory results interpreted by me: 03/28/19 03/28/19 03/28/19 09:29 09:29 10:07 WBC 16.9 H Absolute Neuts (auto) 12.4 H Glucose 123 H Calcium 10.6 H Total Bilirubin 2.2 H Total Protein 8.3 H Albumin 5.3 H Urine Protein >=500 H Urine Glucose (UA) 50 H Urine Ketones 80 H Discharge - Discharge Clinical Impression: Nausea and vomiting Qualifiers: Vomiting type: unspecified Vomiting Intractability: non-intractable Qualified Code(s): R11.2 - Nausea with vomiting, unspecified Diarrhea Qualifiers: Diarrhea type: unspecified type Qualified Code(s): R19.7 - Diarrhea, unspecified Condition: Good Disposition: HOME, SELF-CARE Additional Instructions: You were seen in the emergency department this morning for nausea, vomiting, and diarrhea. Your work-up was overall very reassuring and your symptoms could be related to a possible virus or could be related to your marijuana use. If you have the symptoms in the future you can try using capsaicin cream as it is been shown to help improve symptoms if it is indeed related to marijuana use. Please return to the emergency department if you do have persistent intractable nausea and vomiting, you see large amounts of blood in your vomit or stool, you develop severe shortness of breath or severe chest pain, you pass out, or you have any other concerning symptoms.
[2019-03-28] MEDS ORDERED: PROMETHAZINE HCL INJ 50 MG/1 ML VIAL IM ONE (10:54)
[2019-03-28 11:35] LABS: URINE AMPHETAMINES SCREEN NEGATIVE; URINE BARBITURATES SCREEN NEGATIVE; URINE BENZODIAZEPINES SCREEN NEGATIVE; URINE COCAINE SCREEN NEGATIVE; URINE METHADONE SCREEN NEGATIVE; URINE PHENCYCLIDINE SCREEN NEGATIVE
[2019-03-28 11:36] LABS: URINE MARIJUANA (THC) SCREEN UNCONFIRMED POSITIVE
[2019-03-28] MEDS ORDERED: CAPSAICIN HP 0.075% CREAM 60 GM TP ONE (13:22)
[2019-03-28] MEDS ORDERED: CAPSAICIN 0.025% CREAM 60 GM TP ONE (14:17)
[2019-03-28 15:49] VITALS: BP 145/93
== END 2019-03-28 16:05 | disposition home or self-care (01) ==
LOC: ER 08:29
DX: R11.2 Nausea with vomiting, unspecified (principal); R19.7 Diarrhea, unspecified; F17.200 Nicotine dependence, unspecified, uncomplicated; Z88.6 Allergy status to analgesic agent
CPT/HCPCS: 96376; 99284; 96372; 96361; 96374; 36415; 83690; 85025; 80053; 81001; 80307; J3490; J2550; J2405; J7030

== ENCOUNTER 2019-03-29 06:09 | Emergency (ER) | payer SELFPAY ==
[2019-03-29 06:42] LABS: APPEARANCE,URINE CLEAR; BILIRUBIN,URINE NEGATIVE (NEGATIVE); COLOR,URINE YELLOW; GLUCOSE, URINE 50 mg/dL (NEGATIVE); KETONES,URINE 80 mg/dL (NEGATIVE); PROTEIN,URINE 30 mg/dL (NEGATIVE); URINE SPECIFIC GRAVITY 1.019; UROBILINOGEN,URINE NEGATIVE mg/dL (<2.0)
[2019-03-29] MEDS ORDERED: NORMAL SALINE 1000 ML 1,000 ML IV ONE (07:06)
[2019-03-29] MEDS ORDERED: METOCLOPRAMIDE HCL INJ/PF 10 MG/2 ML SDV IV ONE (07:06)
[2019-03-29 07:37] LABS: ABSOLUTE LYMPHOCYTES (AUTO) 1.4 10^3/uL (0.5-4.7); ABSOLUTE MONOCYTES (AUTO) 1.7 10^3/uL (0.1-1.4); ABSOLUTE NEUT (AUTO) 12.2 10^3/uL (1.7-8.2); BASOPHILS % (AUTO) 0.1 % (0-2); HEMATOCRIT 41.5 % (37.9-51.0); HEMOGLOBIN 14.3 g/dL (13.5-17.0); LYMPHOCYTES % (AUTO) 9.2 % (13-45); MEAN CORPUSCULAR HEMOGLOBIN 29.5 pg (27.0-33.4); MEAN CORPUSCULAR HGB CONC 34.5 g/dL (32.0-36.0); MEAN CORPUSCULAR VOLUME 86 fl (80-97); PLATELET COUNT 300 10^3/uL (150-450); RED BLOOD COUNT 4.85 10^6/uL (4.35-5.55); RED CELL DISTRIBUTION WIDTH 13.5 % (11.5-14.0); SEGMENTED NEUTROPHILS % (AUTO) 79.7 % (42-78); TOTAL CELLS COUNTED % (AUTO) 100 %; WHITE BLOOD COUNT 15.4 10^3/uL (4.0-10.5)
[2019-03-29 07:53] LABS: ALBUMIN 5.1 g/dL (3.5-5.0); ALKALINE PHOSPHATASE 54 U/L (38-126); ANION GAP 15 (5-19); ASPARTATE AMINO TRANSFERASE 28 U/L (17-59); BILIRUBIN,DIRECT 0.3 mg/dL (0.0-0.4); BILIRUBIN,TOTAL 2.7 mg/dL (0.2-1.3); BLOOD UREA NITROGEN 11 mg/dL (7-20); CALCIUM 10.6 mg/dL (8.4-10.2); CARBON DIOXIDE 22 mmol/L (22-30); CHLORIDE 103 mmol/L (98-107); GLUCOSE 122 mg/dL (75-110); POTASSIUM 4.1 mmol/L (3.6-5.0); TOTAL PROTEIN 8.1 g/dL (6.3-8.2)
--- NOTE | 2019-03-29 07:58 | ER Document Report ---
Entered by MILLIE DARBY SCRIBE 03/29/19 0707 Acting as scribe for:SHANDRA GALARZA MD ED GI/ - General Chief Complaint: Nausea/Vomiting Stated Complaint: NAUSEA Time Seen by Provider: 03/29/19 06:55 Mode of Arrival: Ambulatory Information source: Patient Notes: This 28-year-old male patient presents to the emergency department today with complaints of nausea and vomiting for the last week. Patient was seen here for the same yesterday and was told at that time it could be related to his daily marijuana usage. Patient appears to be reluctant to accept that diagnosis today. Patient states he intermittently has had abdominal pain over the last week but adds that it is now persistent since yesterday. Patient requesting ice water. Pertinent PMHx/PSHx: smokes marijuana - additional PMHx/PSHx not pertinent to this visit as recorded. PCP: none TRAVEL OUTSIDE OF THE [place] IN LAST 30 DAYS: No - Related Data Allergies/Adverse Reactions: hydrocodone [From Vicodin] Allergy (Verified 08/28/18 09:55) Nausea Past Medical History - Social History Smoking Status: Current Every Day Smoker Frequency of alcohol use: Social Drug Abuse: Marijuana Family History: Reviewed & Not Pertinent Patient has suicidal ideation: No Patient has homicidal ideation: No - Past Medical History Cardiac Medical History: Denies: Hx Congestive Heart Failure, Hx Coronary Artery Disease, Hx DVT, Hx Heart Attack, Hx Hypercholesterolemia, Hx Hypertension, Hx Pulmonary Embolism Pulmonary Medical History: Denies: Hx Asthma, Hx COPD Neurological Medical History: Denies: Hx Seizures Endocrine Medical History: Denies: Hx Diabetes Mellitus Type 1, Hx Diabetes Mellitus Type 2, Hx Hyperthyroidism, Hx Hypothyroidism Renal/ Medical History: Denies: Hx Peritoneal Dialysis GI Medical History: Reports: Hx Gastroesophageal Reflux Disease. Denies: Hx Cirrhosis, Hx Hepatitis, Hx Liver Failure Musculoskeletal Medical History: Denies Hx Arthritis Skin Medical History: Denies Hx Eczema, Denies Hx Psoriasis Psychiatric Medical History: Denies: Hx Depression Infectious Medical History: Denies: Hx Hepatitis Past Surgical History: Reports: Other - [place] teeth extraction - Immunizations Hx Diphtheria, Pertussis, Tetanus Vaccination: Yes - unk Physical Exam - Vital signs Vitals: Temp Pulse Resp BP Pulse Ox 98.9 F 88 18 154/64 H 100 03/29/19 06:16 03/29/19 06:16 03/29/19 06:16 03/29/19 06:16 03/29/19 06:16 - Notes Notes: Physical Exam: General: Alert, smells heavily of cigarette smoke. HEENT: Normocephalic. Atraumatic. PERRL. Extraocular movements intact. Oropharynx clear. Neck: Supple. Non-tender. Respiratory: No respiratory distress. Clear and equal breath sounds bilaterally. Cardiovascular: Regular rate and rhythm. Abdominal: Normal Inspection. Non-tender. No distension. Normal Bowel Sounds. Back: No gross abnormalities. Extremities: Moves all four extremities. Upper extremities: Normal inspection. Normal ROM. Lower extremities: Normal inspection. No edema. Normal ROM. Neurological: Normal cognition. AAOx4. Normal speech. Psychological: Normal affect. Normal Mood. Skin: Warm. Dry. Normal color. Course - Re-evaluation Re-evalutation: 03/29/19 09:26 The patient was sleeping. I woke him up and he states he is still having some nauseousness. I told him that we would send him home with prescription for Reglan which may work better than the Zofran he was prescribed and did not fill yesterday. I also advised him to use his cigarette money to buy his medication if finances is the problem. - Vital Signs Vital signs: Temp Pulse Resp BP Pulse Ox 98.9 F 88 18 154/64 H 100 03/29/19 06:16 03/29/19 06:16 03/29/19 06:16 03/29/19 06:16 03/29/19 06:16 - Laboratory Result Diagrams: 03/29/19 07:18 03/29/19 07:18 Laboratory results interpreted by me: 03/29/19 03/29/19 03/29/19 06:25 07:18 07:18 WBC 15.4 H Lymph % (Auto) 9.2 L Absolute Neuts (auto) 12.2 H Absolute Monos (auto) 1.7 H Seg Neutrophils % 79.7 H Glucose 122 H Calcium 10.6 H Total Bilirubin 2.7 H Albumin 5.1 H Urine Protein 30 H Urine Glucose (UA) 50 H Urine Ketones 80 H Discharge - Discharge Clinical Impression: Cannabinoid hyperemesis syndrome Condition: Stable Disposition: HOME, SELF-CARE Additional Instructions: Your most likely suffering from a condition called Cannabinoid Hyperemesis Syndrome. This is a problem caused by chronic marijuana use. The result is frequent episodes of prolonged nausea and vomiting and abdominal pain. The only way to stop this cycle is to stop smoking marijuana. For now you should try to drink plenty of cool clear liquids. Take medication as prescribed for nauseousness. Follow-up with a local medical doctor for help stopping your drug use problem. RETURN TO THE EMERGENCY ROOM IF ANY NEW OR WORSENING SYMPTOMS. Prescriptions: Metoclopramide HCl [Reglan 10 mg Tablet] 1 tab PO ASDIR PRN #15 tablet PRN Reason: Scribe Attestation: 03/29/19 09:30 I personally performed the services described in the documentation, reviewed and edited the documentation which was dictated to the scribe in my presence, and it accurately records my words and actions. I personally performed the services described in the documentation, reviewed and edited the documentation which was dictated to the scribe in my presence, and it accurately records my words and actions.
[2019-03-29] MEDS ORDERED: DEXTROSE 5%-LACTATED RINGERS 1,000 ML IV ONE (08:05)
[2019-03-29] MEDS ORDERED: ONDANSETRON HCL INJ/PF 4 MG/2 ML SDV IV ONE (09:26)
[2019-03-29 10:13] VITALS: BP 148/68
== END 2019-03-29 10:13 | disposition home or self-care (01) ==
LOC: ER 06:09
DX: F12.188 Cannabis abuse with other cannabis-induced disorder (principal); R11.2 Nausea with vomiting, unspecified; R10.9 Unspecified abdominal pain; F17.210 Nicotine dependence, cigarettes, uncomplicated; Z87.19 Personal history of other diseases of the digestive system; Z88.5 Allergy status to narcotic agent; Z88.6 Allergy status to analgesic agent
CPT/HCPCS: 99284; 96361; 96375; 96365; 96366; 36415; 85025; 80053; 81001; J2765; J2405; J7121; J7030